=== PATIENT | female | born 1935 | race Caucasian/White ===

== ENCOUNTER 2019-11-16 15:19 | IRF | payer MEDICARE, OTHER, SELFPAY ==
[2019-11-16 15:03] VITALS: BP 113/63; PULSE 109; RESP 16; TEMP 36.3; O2SAT 98; BMI 18.9
--- NOTE | 2019-11-16 15:17 | ADMGEN ---
This patient, Caitie Saez, was admitted to [facility] Room 224-02. Patient/family oriented to hospital policies and general routines including ID bracelet, bed and alarms, visiting hours, pain management, procedures, bathroom and other care routines, personal items, smoking policy, room service/diet, and visiting hours. Valuables list has been completed. Information on how to activate the Rapid Response Team has been discussed. Patient/Family are encouraged to report perceived risks to care and to ask questions if they do not understand what they are told or what they should do.
[2019-11-16 15:58] VITALS: PULSE 109; RESP 16; O2SAT 98
[2019-11-16] MEDS: PANTOPRAZOLE 40 MG TABLET PO (17:42)
[2019-11-16] MEDS: ENOXAPARIN 30 MG/0.3 ML SYRINGE SUB-Q (20:20)
[2019-11-16 22:00] VITALS: BP 113/52; PULSE 92; RESP 18; TEMP 36.7; O2SAT 98
[2019-11-17 04:51] LABS: Basophils Percent Auto 0.7 % (0.2-1.2); Eosinophils Absolute Auto 0.1 K/mm3 (0-0.3); Eosinophils Percent Auto 1.9 % (0-4.4); Hemoglobin 9.2 g/dL (12.0-15.0); Immature Granulocyte Absolute 0.02 K/mm3 (0.00-0.031); Immature Granulocyte Percent A 0.5 % (0-0.5); Lymphocytes Absolute Auto 1.08 K/mm3 (0.9-3.2); Lymphocytes Percent Auto 25.9 % (18.3-44.2); Mean Corpuscular HGB Conc 31.7 g/dl (32-36); Mean Corpuscular Hemoglobin 29.5 pg (26-34); Mean Corpuscular Volume 92.9 fl (80-100); Mean Platelet Volume 8.4 fl (7.4-10.4); Monocytes Absolute Auto 0.5 K/mm3 (0.1-0.6); Monocytes Percent Auto 12.7 % (2.6-8.5); Neutrophils Absolute Auto 2.4 K/mm3 (1.3-6.7); Neutrophils Percent Auto 58.3 % (45.5-73.1); Platelet Count Result 465 k/mm3 (150-375); Red Blood Count 3.12 M/mm3 (4.2-5.4); Red Cell Distribution Width 13.3 % (11.5-14.5); White Blood Count 4.2 K/mm3 (4.5-10.0)
[2019-11-17 05:09] LABS: Blood Urea Nitrogen 14 mg/dL (7-17); Calcium 8.8 mg/dL (8.4-10.2); Carbon Dioxide 27 mmol/L (22-30); Chloride 99 mmol/L (98-107); Estimated CRCL calculation 47 ml/min; Estimated Glomerular Filt Rate > 60; Glucose 109 mg/dL (65-105); Sodium 134 mmol/L (137-145)
[2019-11-17 06:00] VITALS: BP 118/66; PULSE 88; RESP 18; TEMP 36.6; O2SAT 97
[2019-11-17] MEDS: ALENDRONATE SODIUM 70 MG TABLET PO (06:15)
[2019-11-17 08:35] VITALS: BP 102/91; PULSE 103
[2019-11-17] MEDS: TIZANIDINE HCL 4 MG TABLET PO (08:39)
[2019-11-17] MEDS: LOVASTATIN 20 MG TABLET PO (08:39)
[2019-11-17] MEDS: PANTOPRAZOLE 40 MG TABLET PO ×2 (08:40→18:13)
[2019-11-17 14:00] VITALS: BP 119/58; PULSE 99; RESP 18; TEMP 36.6; O2SAT 99
[2019-11-17] MEDS: ENOXAPARIN 30 MG/0.3 ML SYRINGE SUB-Q (20:07)
--- NOTE | 2019-11-17 21:27 | REHAB_ITS ---
DATE OF SERVICE: 11/16/2019 The patient's primary rehab impairment category is neurological condition with etiological diagnosis of lumbar spondylolisthesis and stenosis with neurogenic claudication. The patient was seen [id number] on 11/17/2019 at 10:30 a.m. HISTORY OF PRESENT ILLNESS: An 84-year-old right-handed female, with ongoing history of. 1. Arthritis. 2. Hypertension. 3. GERD. 4. Left total knee arthroplasty in the past. Presented to [facility] on 11/11/2019, for an elective L4-5 posterior lumbar interbody fusion. She underwent laminectomy facetectomy, foraminotomy, and resection of abnormal facet joints at the level of L4-5, L4-5 instrumentation, and L4-5 posterolateral arthrodesis and L4-5 diskectomy and posterior interbody fusion on 11/11/[address] Cathie Mcghee. Postoperatively, she experienced postoperative pain, became anemic from acute blood loss, developed impaired mobility and impaired ability to perform activities of daily living independently. She was to wear and off the self [place] brace when out of bed and ambulating. She was to able to remove it while in bed for hygiene purposes. She was on spinal precautions with no other restriction, hemodynamically stable with current hemoglobin of 9.1. Pain was controlled with oral pain medication, and she was discharged to rehab on Lovenox for DVT prophylaxis, but the therapy was initiated at the acute care facility and the patient was transferred to us from [facility] on 11/16/2019. SURGERY OR FALL: The patient has had major surgery in the 100 days prior to admission. She had no falls with injury in the past year. PAST MEDICAL HISTORY: Arthritis, dyspnea on exertion, GERD, hypertension, hyperlipidemia, back injury, and osteoporosis. PAST SURGICAL HISTORY: Hysterectomy, left total knee arthroplasty, tonsillectomy. SOCIAL HISTORY: Former smoker. Occasional alcohol use. PRIOR LEVEL OF FUNCTION: The patient was independent in eating, oral care, toileting hygiene, bathing, shower, upper body, lower body, footwear, rolling left and right, sit to lying, lying to sitting, sit to stand, bed to chair transfer, toilet transfer, walking independently for 750 feet with rolling walker, wheelchair obviously was not applicable, but she was independent for the stairs as well. CURRENT LEVEL OF FUNCTION: Independent in eating, requires partial assistance for oral care, substantial assistance for toileting hygiene, bathing and shower, partial assistance for upper body, substantial assistance for lower body and footwear, partial assistance for the rolling left and right, substantial assistance for sit to lying, lying to sitting, sit to stand, chair transfer, substantial assistance [id number] and toilet transfer, walking 6 feet with rolling walker substantial assistance, wheelchair not tested, stairs not tested. GOALS: Our therapist will evaluate the patient and establish the goals. However, upon preadmission screening, the expected goals were to be independent with self-care, with transfers with functional mobility so the patient can return home. ESTIMATED LENGTH OF STAY: 10 to 14 days. POTENTIAL BARRIER TO DISCHARGE: Family needs training. ACTIVE COMORBID CONDITION PRESENT ON ADMISSION: Hypertension, hyperlipidemia, GERD, dyspnea on exertion, arthritis, acute postoperative pain, and postoperative blood loss resulting in anemia. PHYSICAL EXAMINATION: GENERAL: Revealed her to be awake, alert, cooperative. VITAL SIGNS: Blood pressure 102/91, pulse of 103, respiration 18, BMI of 19.0 with weight of 50.1 kg. HEENT: Head normocephalic with no cranial bruit. Ear, nose, throat examination normal. NECK: Supple with no cervical bruit. No thyromegaly. No lymphadenopathy.
[2019-11-17 22:00] VITALS: BP 143/64; PULSE 104; RESP 18; TEMP 37.4; O2SAT 96
[2019-11-18] MEDS: TIZANIDINE HCL 4 MG TABLET PO ×3 (04:02→20:16)
[2019-11-18 06:00] VITALS: BP 134/64; PULSE 78; RESP 18; TEMP 36.9; O2SAT 96
[2019-11-18] MEDS: lisinopriL 10 MG TABLET PO (08:45)
[2019-11-18] MEDS: LOVASTATIN 20 MG TABLET PO (08:46)
[2019-11-18] MEDS: PANTOPRAZOLE 40 MG TABLET PO ×2 (08:46→16:47)
[2019-11-18 10:48] VITALS: BMI 18.9
--- NOTE | 2019-11-18 11:10 | PCNSR ---
On 11/18/19, the student, Steph Bales, provided care and completed [facility] documentation on this patient. I have reviewed the student's documentation and agree with the findings.
--- NOTE | 2019-11-18 12:02 | RPD ---
INDIVIDUALIZED PLAN OF CARE FOR Caitie Saez Brief Synthesis of Pre-Admission Screen, Post-Admission Evaluation and Therapy Evaluations: The patient presents to rehab with lumbar spondylolisthesis and stenosis with neurogenic claudication. Comorbidities include hypertension, hyperlipidemia, gastroesophageal reflux disease, dyspnea on exertion, arthritis, acute postoperative pain, and acute blood loss anemia. The patient requires physician services for medical oversight, management of post-op complications in setting of present comorbidities, and pain management. The patient requires nursing services for anticoagulation therapy, diabetes training, DVT prophylactics, IV administration, infection protection, medication management and education, pressure relief, and wound care. Deficits include:ADLs, Balance, Endurance, Family Training/Education, Mobility, Pain Management, ROM, Safety, Strength, and Transfers Manager Nuclear/Case Management for: Discharge Planning and Patient/Family Counseling Physical Therapy: 5 days per week for 90 minutes. Treatments may include: Therapeutic Exercise, Gait Training, Neuromuscular Re-education, Transfer Training, Community Reintegration, Bed Mobility, Patient/Family Education, Wheelchair Mobility Group Therapy/Concurrent Therapy Rationales: -Improve attention span during functional activities in a distracted environment. -Enhance problem solving and/or adequate judgment skills during functional activities in a distracted environment. -Promote increased safety awareness in a distracted environment to reduce fall risk with functional tasks, transfers, and ambulation to allow a more safe, self-sufficient return to the home environment. -Improve dynamic balance skills to promote safety and independence with functional activities in a distracted environment for maximum gain. Occupational Therapy: 5 days per week for 90 minutes. Treatments may include: Therapeutic Exercise, Therapeutic Activity, Cognitive Training, Self-Care Transfer Training, Community Reintegration, Home Management, Patient/Family Education, Wheelchair Mobility Training, Energy Conservation Training Group Therapy/Concurrent Therapy Rationales: -Allow therapist to observe and teach generalization and carry-over of skills learned in individual therapy. -Enhance problem solving and sequencing skills during therapeutic activities in a distracted environment. -Promote increased safety awareness in a realistic setting to reduce fall risk with functional tasks due to visual and verbal distractions. -Increase functional level with ADLs, ADL transfers and use of adaptive equipment through therapeutic activities with others while promoting safety to allow a more safe, self-sufficient return home. Medical Prognosis: Good Anticipated Length of Stay: 10-14 days Rehab Goals: Eating Goal: 06-Independent Oral Hygiene Goal: 06-Independent Toileting Hygiene Goal: 03-Partial/Moderate Assistance Shower/Bathe Self Goal: 03-Partial/Moderate Assistance Upper Body Dressing Goal: 04-Supervision or Touching Assistance Lower Body Dressing Goal: 03-Partial/Moderate Assistance Putting On/Taking Off Footwear Goal: 03-Partial/Moderate Assistance Rolling Left and Right Goal: 06-Independent Sit to Lying Goal: 05-Setup or Clean Up Assistance Lying to Sitting on Side of Bed Goal: 05-Setup or Clean Up Assistance Sit to Stand Goal: 05-Setup or Clean Up Assistance Chair/[id number] Transfer Goal: 05-Setup or Clean Up Assistance Toilet Transfer Goal: 04-Supervision or Touching Assistance Car Transfer Goal: 05-Setup or Clean Up Assistance Walk 10' Goal: 05-Setup or Clean Up Assistance Walk 50' with Two Turns Goal: 05-Setup or Clean Up Assistance Walk 150' Goal: 05-Setup or Clean Up Assistance Walk 10' on Uneven Surface Goal: 05-Setup or Clean Up Assistance 1 Step (Curb) Goal: 03-Partial/Moderate Assistance 4 Steps Goal: 03-Partial/Moderate Assistance 12 Steps Goal Score: 03-Partial/Moderate A
[2019-11-18 14:00] VITALS: BP 119/56; PULSE 96; RESP 19; TEMP 36.2; O2SAT 99
[2019-11-18] MEDS: ENOXAPARIN 30 MG/0.3 ML SYRINGE SUB-Q (20:16)
[2019-11-18 22:00] VITALS: BP 124/55; PULSE 97; RESP 18; TEMP 36.3; O2SAT 98
[2019-11-19 06:00] VITALS: BP 131/58; PULSE 86; RESP 18; TEMP 36.6; O2SAT 99
[2019-11-19] MEDS: LOVASTATIN 20 MG TABLET PO (09:38)
[2019-11-19] MEDS: PANTOPRAZOLE 40 MG TABLET PO ×2 (09:38→17:46)
[2019-11-19] MEDS: lisinopriL 10 MG TABLET PO (09:38)
[2019-11-19] MEDS: TIZANIDINE HCL 4 MG TABLET PO (10:57)
--- NOTE | 2019-11-19 13:19 | WPDNEURORHBP ---
Subjective Date/time seen: 11/19/19 13:19 Interval history: patient is here for lumbar stenosis present physically for the team conference she does have weakness of lower extremities more so than the upper extremities without any headache nausea vomiting chest pain shortness of breath she remains afebrile medications were reviewed Review of Systems Review of Systems: All systems reviewed & are unremarkable except as noted in HPI and below Exam Const: General: comfortable and no acute distress HENMT: Other: normal exam Eyes: General: appearance normal, both eyes and all related structures Neck: Neck: supple and no JVD Resp: Effort & Inspection: normal respiratory effort Auscultation: clear to auscultation bilaterally Cardio: Rate: regular rate Rhythm: regular rhythm GI: GI Palp: Yes Soft to palpation Auscultation: normal bowel sounds Skin: General skin exam: normal color and no rashes or lesions noted Neuro: Other: patient's mental status is normal, cranial nerve examination is normal. She has generalized weakness of both upper lower extra upper and lower extremities lower extremities more so than the upper extremities needing assistance in all the activities of daily living and using assistive device Extrem: General: normal to inspection Objective Data Vital Signs Vital Signs: Vital Signs - 24 hr 11/18/19 14:00 11/18/19 22:00 11/19/19 06:00 Temperature 36.2 C L 36.3 C L 36.6 C Pulse Rate 96 97 86 Respiratory Rate 19 18 18 Blood Pressure 119/56 L 124/55 L 131/58 L Pulse Oximetry 99 98 99 Intake/Output Intake/Output: Intake & Output 11/16/19 11/17/19 11/18/19 11/19/19 23:59 23:59 23:59 23:59 Intake Total 200 720 840 Balance 200 720 840 Meds/Results Medications: Active Medications Generic Name Dose Route Start Last Admin Trade Name Freq PRN Reason Stop Dose Admin Hydrocodone Bitart/Acetaminophen 1 tab 11/16/19 15:27 11/17/19 12:45 [place] 5-325 Mg PO 1 tab Q4H PRN Administration Pain (Scale Score 4-6) Hydrocodone Bitart/Acetaminophen 2 tab 11/16/19 15:27 11/19/19 10:56 [place] 5-325 Mg PO 2 tab Q4H PRN Administration Pain (Scale Score 7-10) Alendronate Sodium 70 mg 11/17/19 06:30 11/17/19 06:15 Fosamax PO 70 mg Four[place]@0630 RYAN Administration Enoxaparin Sodium 30 mg 11/16/19 21:00 11/18/19 20:16 Lovenox SUB-Q 30 mg HS RYAN Administration Lisinopril 10 mg 11/17/19 09:00 11/19/19 09:38 Prinivil PO 10 mg DAILY RYAN Administration Lovastatin 20 mg 11/17/19 09:00 11/19/19 09:38 Lovastatin PO 20 mg DAILY RYAN Administration Pantoprazole Sodium 40 mg 11/16/19 17:00 11/19/19 09:38 Protonix PO 40 mg BID RYAN Administration Tizanidine HCl 4 mg 11/16/19 15:27 11/19/19 10:57 Zanaflex PO 4 mg Q6H PRN Administration Muscle Spasm Progress Note: A&P Assessment and Plan (1) Spondylolisthesis, lumbar region: Code(s): M43.16 - Spondylolisthesis, lumbar region Status: Acute (2) Neurogenic claudication: Code(s): M48.062 - Spinal stenosis, lumbar region with neurogenic claudication Status: Acute (3) Fusion of lumbar spine: Code(s): M43.26 - Fusion of spine, lumbar region Status: Acute (4) S/P laminectomy: Code(s): Z98.890 - Other specified postprocedural states Status: Acute (5) Hypertension: Code(s): I10 - Essential (primary) hypertension Status: Acute (6) GERD (gastroesophageal reflux disease): Code(s): K21.9 - Gastro-esophageal reflux disease without esophagitis Status: Acute Additional Plan discussed in the team conference in detail questions were answered son was on telephone line and significant other was present. We will continue present management and reassess the situation next week discharged tentative planning is for December 01, 2019
[2019-11-19 14:00] VITALS: BP 79/53; PULSE 94; RESP 18; TEMP 36.5; O2SAT 97
[2019-11-19] MEDS: ENOXAPARIN 30 MG/0.3 ML SYRINGE SUB-Q (19:59)
[2019-11-19 22:00] VITALS: BP 123/54; PULSE 87; RESP 18; TEMP 36.8; O2SAT 97
[2019-11-20 06:00] VITALS: BP 116/51; PULSE 79; RESP 17; TEMP 36.7; O2SAT 96
[2019-11-20] MEDS: LOVASTATIN 20 MG TABLET PO (08:33)
[2019-11-20] MEDS: lisinopriL 10 MG TABLET PO (08:33)
[2019-11-20] MEDS: PANTOPRAZOLE 40 MG TABLET PO ×2 (08:33→17:38)
--- NOTE | 2019-11-20 13:59 | WPDNEURORHBP ---
Subjective Date/time seen: 11/20/19 13:59 Interval history: patient is complaining of significant amount of pain and we will adjust the medication accordingly according to the significant other the surgeon has called him to have a follow-up for the staple removal however they also gave him the option that the baljeet can be removed here her incision is clean and healthy and baljeet are also clean and healthy so we should be able to take care of it at our end Review of Systems Review of Systems: All systems reviewed & are unremarkable except as noted in HPI and below Functional Status Ambulation Ability Ambulation Assistive Devices: Walker, Wheeled Exam Const: General: comfortable and no acute distress HENMT: General nose exam: Normal nares present Mouth: Yes moist mucous membranes Eyes: General: appearance normal, both eyes and all related structures Neck: Neck: supple and no JVD Resp: Effort & Inspection: normal respiratory effort Auscultation: clear to auscultation bilaterally Cardio: Rate: regular rate Rhythm: regular rhythm GI: GI Palp: Yes Soft to palpation Auscultation: normal bowel sounds Skin: General skin exam: normal color and no rashes or lesions noted Neuro: Other: improving generalized weakness particularly the lower extremity weakness the patient is engage in the therapy quite well we will change the medication to scheduled oxycodone Extrem: General: normal to inspection Objective Data Vital Signs Vital Signs: Vital Signs - 24 hr 11/19/19 14:00 11/19/19 22:00 11/20/19 06:00 Temperature 36.5 C 36.8 C 36.7 C Pulse Rate 94 87 79 Respiratory Rate 18 18 17 Blood Pressure 79/53 L 123/54 L 116/51 L Pulse Oximetry 97 97 96 Intake/Output Intake/Output: Intake & Output 11/17/19 11/18/19 11/19/19 11/20/19 23:59 23:59 23:59 23:59 Intake Total 720 840 360 Balance 720 840 360 Meds/Results Medications: Active Medications Generic Name Dose Route Start Last Admin Trade Name Freq PRN Reason Stop Dose Admin Hydrocodone Bitart/Acetaminophen 1 tab 11/16/19 15:27 11/17/19 12:45 [place] 5-325 Mg PO 1 tab Q4H PRN Administration Pain (Scale Score 4-6) Hydrocodone Bitart/Acetaminophen 2 tab 11/16/19 15:27 11/20/19 11:45 [place] 5-325 Mg PO 2 tab Q4H PRN Administration Pain (Scale Score 7-10) Alendronate Sodium 70 mg 11/17/19 06:30 11/17/19 06:15 Fosamax PO 70 mg Fournier@0630 RYAN Administration Enoxaparin Sodium 30 mg 11/16/19 21:00 11/19/19 19:59 Lovenox SUB-Q 30 mg HS RYAN Administration Lisinopril 10 mg 11/17/19 09:00 11/20/19 08:33 Prinivil PO 10 mg DAILY RYAN Administration Lovastatin 20 mg 11/17/19 09:00 11/20/19 08:33 Lovastatin PO 20 mg DAILY RYAN Administration Pantoprazole Sodium 40 mg 11/16/19 17:00 11/20/19 08:33 Protonix PO 40 mg BID RYAN Administration Tizanidine HCl 4 mg 11/16/19 15:27 11/19/19 10:57 Zanaflex PO 4 mg Q6H PRN Administration Muscle Spasm Progress Note: A&P Assessment and Plan (1) GERD (gastroesophageal reflux disease): Code(s): K21.9 - Gastro-esophageal reflux disease without esophagitis Status: Acute (2) Hypertension: Code(s): I10 - Essential (primary) hypertension Status: Acute (3) S/P laminectomy: Code(s): Z98.890 - Other specified postprocedural states Status: Acute (4) Fusion of lumbar spine: Code(s): M43.26 - Fusion of spine, lumbar region Status: Acute (5) Neurogenic claudication: Code(s): M48.062 - Spinal stenosis, lumbar region with neurogenic claudication Status: Acute (6) Spondylolisthesis, lumbar region: Code(s): M43.16 - Spondylolisthesis, lumbar region Status: Acute Additional Plan pain management medical management reassurance counseling physical therapy occupational therapy and gait training
[2019-11-20 14:00] VITALS: BP 109/53; PULSE 100; RESP 17; TEMP 36.7; O2SAT 99
[2019-11-20] MEDS: ENOXAPARIN 30 MG/0.3 ML SYRINGE SUB-Q (20:33)
[2019-11-20] MEDS: TIZANIDINE HCL 4 MG TABLET PO (21:28)
[2019-11-20 22:00] VITALS: BP 121/61; PULSE 109; RESP 18; TEMP 36.5; O2SAT 98
[2019-11-21] MEDS: TIZANIDINE HCL 4 MG TABLET PO ×3 (04:23→20:43)
[2019-11-21 05:58] VITALS: BP 94/40; PULSE 68; RESP 18; TEMP 36.7; O2SAT 97
[2019-11-21] MEDS: lisinopriL 10 MG TABLET PO (07:57)
[2019-11-21] MEDS: PANTOPRAZOLE 40 MG TABLET PO ×2 (07:58→18:03)
[2019-11-21] MEDS: LOVASTATIN 20 MG TABLET PO (07:58)
[2019-11-21 08:00] VITALS: PULSE 68; RESP 18; O2SAT 97
--- NOTE | 2019-11-21 12:20 | WPDNEURORHBP ---
Subjective Date/time seen: 11/21/19 12:20 Interval history: patient is here for lumbar canal stenosis post surgery and recuperating fairly well her incision is clean and healthy baljeet will be removed tomorrow as per instructions from the surgeon with whom she has the follow-up for staple removal but according to them we can remove them here Patient denies any new neurological findings had weakness is improving no headache chest pain shortness of breath fever chills or sore throat Review of Systems Review of Systems: All systems reviewed & are unremarkable except as noted in HPI and below Functional Status Ambulation Ability Ability to Ambulate 10 Feet: Maximum Assistance X 1 Ambulation Assistive Devices: Walker, Wheeled Transfers Ability Ability to Transfer In/Out of Chair: Moderate Assistance X 1 Exam Const: General: comfortable and no acute distress HENMT: General nose exam: Normal nares present Mouth: Yes moist mucous membranes Eyes: General: appearance normal, both eyes and all related structures Neck: Neck: supple and no JVD Resp: Effort & Inspection: normal respiratory effort Auscultation: clear to auscultation bilaterally Cardio: Rate: regular rate Rhythm: regular rhythm GI: GI Palp: Yes Soft to palpation Auscultation: normal bowel sounds Back/Spine/Pelvis: Other: patient's incision and the thoracolumbar area is clean and healthy baljeet are in place no drainage is noted no sign of infection Skin: General skin exam: normal color and no rashes or lesions noted Neuro: Other: the strength particularly in the lower extremities is improving the reflexes remain the same as before no new neurological finding likewise the strength in the upper extremities is also improving Extrem: General: normal to inspection Objective Data Vital Signs Vital Signs: Vital Signs - 24 hr 11/20/19 14:00 11/20/19 22:00 11/21/19 05:58 Temperature 36.7 C 36.5 C 36.7 C Pulse Rate 100 109 H 68 Respiratory Rate 17 18 18 Blood Pressure 109/53 L 121/61 94/40 L Pulse Oximetry 99 98 97 11/21/19 08:00 Temperature Pulse Rate 68 Respiratory Rate 18 Blood Pressure Pulse Oximetry 97 Intake/Output Intake/Output: Intake & Output 11/18/19 11/19/19 11/20/19 11/21/19 23:59 23:59 23:59 23:59 Intake Total 840 600 340 Balance 840 600 340 Meds/Results Medications: Active Medications Generic Name Dose Route Start Last Admin Trade Name Freq PRN Reason Stop Dose Admin Hydrocodone Bitart/Acetaminophen 1 tab 11/16/19 15:27 11/21/19 01:02 [place] 5-325 Mg PO 1 tab Q4H PRN Administration Pain (Scale Score 4-6) Hydrocodone Bitart/Acetaminophen 2 tab 11/16/19 15:27 11/21/19 12:03 [place] 5-325 Mg PO 2 tab Q4H PRN Administration Pain (Scale Score 7-10) Alendronate Sodium 70 mg 11/17/19 06:30 11/17/19 06:15 Fosamax PO 70 mg Fournier@0630 RYAN Administration Enoxaparin Sodium 30 mg 11/16/19 21:00 11/20/19 20:33 Lovenox SUB-Q 30 mg HS RYAN Administration Lisinopril 10 mg 11/17/19 09:00 11/21/19 07:57 Prinivil PO 10 mg DAILY RYAN Administration Lovastatin 20 mg 11/17/19 09:00 11/21/19 07:58 Lovastatin PO 20 mg DAILY RYAN Administration Pantoprazole Sodium 40 mg 11/16/19 17:00 11/21/19 07:58 Protonix PO 40 mg BID RYAN Administration Tizanidine HCl 4 mg 11/16/19 15:27 11/21/19 04:23 Zanaflex PO 4 mg Q6H PRN Administration Muscle Spasm Progress Note: A&P Assessment and Plan (1) GERD (gastroesophageal reflux disease): Code(s): K21.9 - Gastro-esophageal reflux disease without esophagitis Status: Acute (2) Hypertension: Code(s): I10 - Essential (primary) hypertension Status: Acute (3) S/P laminectomy: Code(s): Z98.890 - Other specified postprocedural states Status: Acute (4) Fusion of lumbar spine: Code(s): M43.26 - Fusion of spine, lumbar region Status: Acute (5) Neurog
[2019-11-21 14:00] VITALS: BP 119/52; PULSE 107; RESP 20; TEMP 36.3; O2SAT 97
[2019-11-21] MEDS: ENOXAPARIN 30 MG/0.3 ML SYRINGE SUB-Q (20:41)
[2019-11-21 22:00] VITALS: BP 132/52; PULSE 88; RESP 18; TEMP 37.2; O2SAT 98
[2019-11-22] MEDS: TIZANIDINE HCL 4 MG TABLET PO ×2 (04:04→20:25)
[2019-11-22 06:00] VITALS: BP 141/58; PULSE 78; RESP 18; TEMP 36.6; O2SAT 100
[2019-11-22 08:00] VITALS: PULSE 78; RESP 18; O2SAT 100
[2019-11-22] MEDS: PANTOPRAZOLE 40 MG TABLET PO ×2 (09:10→16:34)
[2019-11-22] MEDS: LOVASTATIN 20 MG TABLET PO (09:10)
[2019-11-22] MEDS: lisinopriL 10 MG TABLET PO (09:10)
--- NOTE | 2019-11-22 13:36 | WPDNEURORHBP ---
Subjective Date/time seen: 11/22/19 13:36 Interval history: pain and discomfort her remains the main issue along with the anxiety and superimposed frustration otherwise she is overall stable the baljeet are supposed to be removed today as per recommendation from the surgical team which she has had the surgery performed patient denies any headache chest pain or shortness of breath no nausea vomiting or fever or chills Review of Systems Review of Systems: All systems reviewed & are unremarkable except as noted in HPI and below Functional Status Ambulation Ability Ability to Ambulate 10 Feet: Moderate Assistance X 2 Ability to Ambulate 50 Feet With 2 Turns: Moderate Assistance X 2 Ambulation Assistive Devices: Walker, Rollator Transfers Ability Ability to Transfer In/Out of Chair: Moderate Assistance X 1 Exam Const: General: no acute distress and uncomfortable Other: patient is uncomfortable due to continuum of the pain particularly increases with physical therapy HENMT: General nose exam: Normal nares present Mouth: Yes moist mucous membranes Eyes: General: appearance normal, both eyes and all related structures Neck: Neck: supple and no JVD Resp: Effort & Inspection: normal respiratory effort Auscultation: clear to auscultation bilaterally Cardio: Rate: regular rate Rhythm: regular rhythm GI: GI Palp: Yes Soft to palpation Auscultation: normal bowel sounds Skin: General skin exam: normal color and no rashes or lesions noted Neuro: Other: patient's weakness particularly the lower extremities more so than the upper extremities is slowly improving she is taking several steps with the assistance however needs significant encouragement and counseling to reduce her anxiety and depressive state Extrem: General: normal to inspection Objective Data Vital Signs Vital Signs: Vital Signs - 24 hr 11/21/19 14:00 11/21/19 22:00 11/22/19 06:00 Temperature 36.3 C L 37.2 C 36.6 C Pulse Rate 107 H 88 78 Respiratory Rate 20 18 18 Blood Pressure 119/52 L 132/52 L 141/58 H Pulse Oximetry 97 98 100 11/22/19 08:00 Temperature Pulse Rate 78 Respiratory Rate 18 Blood Pressure Pulse Oximetry 100 Intake/Output Intake/Output: Intake & Output 11/19/19 11/20/19 11/21/19 11/22/19 23:59 23:59 23:59 23:59 Intake Total 600 920 340 Balance 600 920 340 Meds/Results Medications: Active Medications Generic Name Dose Route Start Last Admin Trade Name Freq PRN Reason Stop Dose Admin Hydrocodone Bitart/Acetaminophen 1 tab 11/16/19 15:27 11/21/19 01:02 [place] 5-325 Mg PO 1 tab Q4H PRN Administration Pain (Scale Score 4-6) Hydrocodone Bitart/Acetaminophen 2 tab 11/16/19 15:27 11/22/19 09:13 [place] 5-325 Mg PO 2 tab Q4H PRN Administration Pain (Scale Score 7-10) Alendronate Sodium 70 mg 11/17/19 06:30 11/17/19 06:15 Fosamax PO 70 mg Fournier@0630 RYAN Administration Enoxaparin Sodium 30 mg 11/16/19 21:00 11/21/19 20:41 Lovenox SUB-Q 30 mg HS RYAN Administration Lisinopril 10 mg 11/17/19 09:00 11/22/19 09:10 Prinivil PO 10 mg DAILY RYAN Administration Lovastatin 20 mg 11/17/19 09:00 11/22/19 09:10 Lovastatin PO 20 mg DAILY RYAN Administration Pantoprazole Sodium 40 mg 11/16/19 17:00 11/22/19 09:10 Protonix PO 40 mg BID RYAN Administration Tizanidine HCl 4 mg 11/16/19 15:27 11/22/19 04:04 Zanaflex PO 4 mg Q6H PRN Administration Muscle Spasm
[2019-11-22 14:00] VITALS: BP 109/69; PULSE 111; RESP 20; TEMP 36.4; O2SAT 100
--- NOTE | 2019-11-22 14:26 | PCDIET ---
Nutrition Follow-Up Complete: Nutrition Diagnosis: Inadequate energy intake related to decreased appetite as evidenced by unintentional weight loss of 7.2 kg since March and reported intake. Nutrition Goals: Patient will consume >70% of all meals and all dietary supplements. Goal met. Average intake since 11/19/19 has been 75% of meals. Patient reports taking all Ensure Compact supplements and is drinking one during visit. Last recorded weight is 50.1 kg. Recommend obtaining new weight. Bowel Motility: Last documented bowel movement on 11/21/19. Patient feels her bowel schedule is back to normal. Labs Reviewed: No new labs available. Meds Noted: Fosamax, Protonix Additional Notes: Back incision with baljeet; no documented pressure ulcers. Will continue to monitor with same goals. Nutrition Monitoring and Evaluation: Will follow up in 7 days.
[2019-11-22] MEDS: ENOXAPARIN 30 MG/0.3 ML SYRINGE SUB-Q (20:26)
[2019-11-22 22:00] VITALS: BP 132/49; PULSE 96; RESP 18; TEMP 37.1; O2SAT 98
[2019-11-23] MEDS: TIZANIDINE HCL 4 MG TABLET PO ×2 (03:44→16:16)
[2019-11-23 06:00] VITALS: BP 82/43; PULSE 80; RESP 19; TEMP 37; O2SAT 96
[2019-11-23] MEDS: LOVASTATIN 20 MG TABLET PO (09:11)
[2019-11-23] MEDS: PANTOPRAZOLE 40 MG TABLET PO ×2 (09:11→17:41)
[2019-11-23] MEDS: lisinopriL 10 MG TABLET PO (09:11)
[2019-11-23 14:00] VITALS: BP 110/71; PULSE 85; RESP 16; TEMP 36.5; O2SAT 96
[2019-11-23] MEDS: ENOXAPARIN 30 MG/0.3 ML SYRINGE SUB-Q (19:51)
[2019-11-23 22:00] VITALS: BP 108/50; PULSE 98; RESP 18; TEMP 36.9; O2SAT 98
[2019-11-24] MEDS: TIZANIDINE HCL 4 MG TABLET PO (01:06)
[2019-11-24 05:16] LABS: Blood Urea Nitrogen 17 mg/dL (7-17); Carbon Dioxide 31 mmol/L (22-30); Chloride 99 mmol/L (98-107); Estimated CRCL calculation 41 ml/min; Estimated Glomerular Filt Rate > 60; Glucose 101 mg/dL (65-105); Potassium 4.5 mmol/L (3.4-5.0); Sodium 136 mmol/L (137-145)
[2019-11-24 05:34] LABS: Basophils Percent Auto 0.6 % (0.2-1.2); Eosinophils Absolute Auto 0.1 K/mm3 (0-0.3); Eosinophils Percent Auto 1.8 % (0-4.4); Hematocrit 26.1 % (37.0-47.0); Hemoglobin 7.9 g/dL (12.0-15.0); Immature Granulocyte Absolute 0.05 K/mm3 (0.00-0.031); Immature Granulocyte Percent A 0.7 % (0-0.5); Lymphocytes Absolute Auto 1.16 K/mm3 (0.9-3.2); Mean Corpuscular HGB Conc 30.3 g/dl (32-36); Mean Platelet Volume 8.5 fl (7.4-10.4); Monocytes Absolute Auto 0.5 K/mm3 (0.1-0.6); Monocytes Percent Auto 7.5 % (2.6-8.5); Neutrophils Percent Auto 72.4 % (45.5-73.1); Platelet Count Result 558 k/mm3 (150-375); Red Blood Count 2.72 M/mm3 (4.2-5.4); White Blood Count 6.8 K/mm3 (4.5-10.0)
[2019-11-24 06:00] VITALS: BP 120/55; PULSE 80; RESP 18; TEMP 36.8; O2SAT 94
[2019-11-24] MEDS: ALENDRONATE SODIUM 70 MG TABLET PO (06:03)
[2019-11-24] MEDS: PANTOPRAZOLE 40 MG TABLET PO ×2 (08:04→18:00)
[2019-11-24] MEDS: lisinopriL 10 MG TABLET PO (08:04)
[2019-11-24] MEDS: LOVASTATIN 20 MG TABLET PO (08:04)
[2019-11-24 14:00] VITALS: BP 101/61; PULSE 98; RESP 16; TEMP 36.8; O2SAT 99
--- NOTE | 2019-11-24 14:23 | WPDNEURORHBP ---
Subjective Date/time seen: 11/24/19 14:23 Interval history: patient's significant other tell me that she is depressed and at times seems like giving up this is probably combination of pain and discomfort and also being in the hospital The laboratory data daughter shows anemia which I am going to observe and repeat the CBC tomorrow Review of Systems Constitutional: Constitutional: Reports no additional constitutional complaints Eyes: Eyes: Reports no additional eye complaints ENT: Reports system reviewed and no additional complaints, except as documented Cardiovascular: Cardiovascular: Reports no additional cardiovascular complaints Respiratory: Respiratory: Reports no additional respiratory complaints Gastrointestinal: Gastrointestinal: Reports no additional gastrointestinal complaints Genitourinary: Genitourinary: Reports no additional female genitourinary complaints Musculoskeletal: Comments: patient has discomfort and the pain at the surgical site and in fact did not cooperate with the therapy today due to pain Integumentary/Breasts: Skin/Breast: Reports system reviewed and no additional complaints, except as docu Neurologic: Comments: seems to be perturbed due to pain rather than the real weakness Psychiatric: Comments: patient's significant other stools me that she is depressed Functional Status Ambulation Ability Ability to Ambulate 10 Feet: Moderate Assistance X 1 Ability to Ambulate 50 Feet With 2 Turns: Moderate Assistance X 2 Ambulation Assistive Devices: Walker, Rollator Transfers Ability Ability to Transfer In/Out of Chair: Moderate Assistance X 1 Exam Const: General: no acute distress and uncomfortable HENMT: General nose exam: Normal nares present Mouth: Yes moist mucous membranes Eyes: General: appearance normal, both eyes and all related structures Neck: Neck: supple and no JVD Resp: Effort & Inspection: normal respiratory effort Auscultation: clear to auscultation bilaterally Cardio: Rate: regular rate Rhythm: regular rhythm GI: GI Palp: Yes Soft to palpation Auscultation: normal bowel sounds Skin: General skin exam: normal color and no rashes or lesions noted Neuro: Other: patient's needing assistance because of the pain rather than the real weakness although she does have weakness and debility in the lower extremities more so than the upper extremities related to the surgery Extrem: General: normal to inspection Objective Data Vital Signs Vital Signs: Vital Signs - 24 hr 11/23/19 22:00 11/24/19 06:00 Temperature 36.9 C 36.8 C Pulse Rate 98 80 Respiratory Rate 18 18 Blood Pressure 108/50 L 120/55 L Pulse Oximetry 98 94 Intake/Output Intake/Output: Intake & Output 11/21/19 11/22/19 11/23/19 11/24/19 23:59 23:59 23:59 23:59 Intake Total 920 1020 520 720 Balance 920 1020 520 720 Meds/Results Medications: Active Medications Generic Name Dose Route Start Last Admin Trade Name Freq PRN Reason Stop Dose Admin Hydrocodone Bitart/Acetaminophen 1 tab 11/16/19 15:27 11/21/19 01:02 [place] 5-325 Mg PO 1 tab Q4H PRN Administration Pain (Scale Score 4-6) Hydrocodone Bitart/Acetaminophen 2 tab 11/16/19 15:27 11/24/19 08:04 [place] 5-325 Mg PO 2 tab Q4H PRN Administration Pain (Scale Score 7-10) Alendronate Sodium 70 mg 11/17/19 06:30 11/24/19 06:03 Fosamax PO 70 mg Fournier@0630 RYAN Administration Enoxaparin Sodium 30 mg 11/16/19 21:00 11/23/19 19:51 Lovenox SUB-Q 30 mg HS RYAN Administration Lisinopril 10 mg 11/17/19 09:00 11/24/19 08:04 Prinivil PO 10 mg DAILY RYAN Administration Lovastatin 20 mg 11/17/19 09:00 11/24/19 08:04 Lovastatin PO 20 mg DAILY RYAN Administration Pantoprazole Sodium 40 mg 11/16/19 17:00 11/24/19 08:04 Protonix PO 40 mg BID RYAN Administration Tizanidine HCl 4 mg 11/16/19 15:27 11/24/19 01:06 Zanaflex PO 4 mg Q6H PRN Administration Muscle Spas
[2019-11-24] MEDS: ESCITALOPRAM OXALATE 5 MG TABLET PO (15:21)
[2019-11-24] MEDS: ENOXAPARIN 30 MG/0.3 ML SYRINGE SUB-Q (20:18)
[2019-11-24 22:00] VITALS: BP 145/86; PULSE 95; RESP 18; TEMP 36.9; O2SAT 98
[2019-11-24 22:19] VITALS: PULSE 98; RESP 16; O2SAT 99
[2019-11-25 05:11] LABS: Basophils Percent Auto 0.4 % (0.2-1.2); Eosinophils Absolute Auto 0.1 K/mm3 (0-0.3); Eosinophils Percent Auto 0.9 % (0-4.4); Hematocrit 27.2 % (37.0-47.0); Hemoglobin 8.5 g/dL (12.0-15.0); Immature Granulocyte Absolute 0.04 K/mm3 (0.00-0.031); Immature Granulocyte Percent A 0.6 % (0-0.5); Lymphocytes Absolute Auto 1.02 K/mm3 (0.9-3.2); Lymphocytes Percent Auto 15.1 % (18.3-44.2); Mean Corpuscular HGB Conc 31.3 g/dl (32-36); Mean Corpuscular Hemoglobin 29.3 pg (26-34); Mean Corpuscular Volume 93.8 fl (80-100); Monocytes Absolute Auto 0.6 K/mm3 (0.1-0.6); Monocytes Percent Auto 8.3 % (2.6-8.5); Neutrophils Percent Auto 74.7 % (45.5-73.1); Platelet Count Result 587 k/mm3 (150-375); Red Cell Distribution Width 13.9 % (11.5-14.5); White Blood Count 6.8 K/mm3 (4.5-10.0)
[2019-11-25 06:00] VITALS: BP 123/41; PULSE 89; RESP 17; TEMP 37.1; O2SAT 97
[2019-11-25 08:00] VITALS: PULSE 89; RESP 17; O2SAT 97
[2019-11-25] MEDS: ESCITALOPRAM OXALATE 5 MG TABLET PO (10:09)
[2019-11-25] MEDS: PANTOPRAZOLE 40 MG TABLET PO ×2 (10:09→17:43)
[2019-11-25] MEDS: lisinopriL 10 MG TABLET PO (10:09)
[2019-11-25] MEDS: LOVASTATIN 20 MG TABLET PO (10:09)
[2019-11-25 14:38] VITALS: BP 120/43; PULSE 90; RESP 18; TEMP 36.9; O2SAT 96
[2019-11-25] MEDS: ENOXAPARIN 30 MG/0.3 ML SYRINGE SUB-Q (21:14)
[2019-11-25 22:00] VITALS: BP 135/93; PULSE 95; RESP 24; TEMP 36.2; O2SAT 97
[2019-11-25] MEDS: TIZANIDINE HCL 4 MG TABLET PO (22:59)
[2019-11-26] MEDS: polyethylene glycoL 3350 17 GM POWD.PACK PO (05:13)
[2019-11-26 06:00] VITALS: BP 126/70; PULSE 83; RESP 20; TEMP 36.4; O2SAT 95
[2019-11-26] MEDS: ESCITALOPRAM OXALATE 5 MG TABLET PO (08:38)
[2019-11-26] MEDS: LOVASTATIN 20 MG TABLET PO (08:38)
[2019-11-26] MEDS: lisinopriL 10 MG TABLET PO (08:38)
[2019-11-26] MEDS: PANTOPRAZOLE 40 MG TABLET PO ×2 (08:39→17:54)
[2019-11-26] MEDS: TIZANIDINE HCL 4 MG TABLET PO (11:05)
--- NOTE | 2019-11-26 13:01 | WPDNEURORHBP ---
Subjective Date/time seen: 11/26/19 13:01 Interval history: patient when she is lying down is doing fairly well however it is difficult for her to take a few steps event because of the pain she experiences at the surgical site she does well while in the wheelchair Otherwise he does not have chest pain or shortness of breath no fever chills or sore throat Review of Systems Constitutional: Constitutional: Reports no additional constitutional complaints Eyes: Eyes: Reports no additional eye complaints ENT: Reports system reviewed and no additional complaints, except as documented Cardiovascular: Cardiovascular: Reports no additional cardiovascular complaints Respiratory: Respiratory: Reports no additional respiratory complaints Musculoskeletal: Musculoskeletal: Reports no additional musculoskeletal complaints Integumentary/Breasts: Skin/Breast: Reports system reviewed and no additional complaints, except as docu Neurologic: Comments: patient's mental status and cranial nerve examination is fairly decent and within the normal range the strength in the lower extremities also seems to be intact but she has difficult time managing the pain are dealing with the pain when she stands overall neurological examination remains stable Psychiatric: Psychiatric: Reports no additional psychiatric complaints Functional Status Ambulation Ability Ability to Ambulate 10 Feet: Moderate Assistance X 1 Ability to Ambulate 50 Feet With 2 Turns: Moderate Assistance X 2 Ambulation Assistive Devices: Parallel Bars Transfers Ability Ability to Transfer In/Out of Chair: Maximum Assistance X 1 Exam Const: General: no acute distress and uncomfortable HENMT: General nose exam: Normal nares present Mouth: Yes moist mucous membranes Eyes: General: appearance normal, both eyes and all related structures Neck: Neck: supple and no JVD Resp: Effort & Inspection: normal respiratory effort Auscultation: clear to auscultation bilaterally Cardio: Rate: regular rate Rhythm: regular rhythm GI: GI Palp: Yes Soft to palpation Auscultation: normal bowel sounds Skin: General skin exam: normal color and no rashes or lesions noted Neuro: Other: overall patient's neuro exam is stable however is still she has difficult time standing up and moving forward in an upright position she will need better pain control hopefully to engage in therapy Extrem: General: normal to inspection Objective Data Vital Signs Vital Signs: Vital Signs - 24 hr 11/25/19 14:38 11/25/19 22:00 11/26/19 06:00 Temperature 36.9 C 36.2 C L 36.4 C L Pulse Rate 90 95 83 Respiratory Rate 18 24 H 20 Blood Pressure 120/43 L 135/93 H 126/70 Pulse Oximetry 96 97 95 Intake/Output Intake/Output: Intake & Output 11/23/19 11/24/19 11/25/19 11/26/19 23:59 23:59 23:59 23:59 Intake Total 520 960 720 240 Balance 520 960 720 240 Meds/Results Medications: Active Medications Generic Name Dose Route Start Last Admin Trade Name Freq PRN Reason Stop Dose Admin Alendronate Sodium 70 mg 11/17/19 06:30 11/24/19 06:03 Fosamax PO 70 mg Fournier@0630 RYAN Administration Enoxaparin Sodium 30 mg 11/16/19 21:00 11/25/19 21:14 Lovenox SUB-Q 30 mg HS RYAN Administration Escitalopram Oxalate 5 mg 11/24/19 09:00 11/26/19 08:38 Lexapro PO 5 mg QAM RYAN Administration Lisinopril 10 mg 11/17/19 09:00 11/26/19 08:38 Prinivil PO 10 mg DAILY RYAN Administration Lovastatin 20 mg 11/17/19 09:00 11/26/19 08:38 Lovastatin PO 20 mg DAILY RYAN Administration Oxycodone HCl 10 mg 11/26/19 13:00 Roxicodone Ir Tablet PO Q4H RYAN Pantoprazole Sodium 40 mg 11/16/19 17:00 11/26/19 08:39 Protonix PO 40 mg BID RYAN Administration Polyethylene Glycol 17 gm 11/25/19 23:24 11/26/19 05:13 Miralax PO 17 gm QAM PRN Administration Constipation Tizanidine HCl 4 mg 11/16/19 15:27 11/26/19 11:05 Zanaflex PO 4 mg Q6H MO
[2019-11-26 14:00] VITALS: BP 110/52; PULSE 92; RESP 16; TEMP 36.1; O2SAT 95
[2019-11-26] MEDS: ENOXAPARIN 30 MG/0.3 ML SYRINGE SUB-Q (20:34)
[2019-11-26 22:00] VITALS: BP 142/85; PULSE 111; RESP 20; TEMP 36.6; O2SAT 95
[2019-11-27 05:50] VITALS: BP 141/47; PULSE 94; RESP 18; TEMP 37.1; O2SAT 96
[2019-11-27] MEDS: lisinopriL 10 MG TABLET PO (09:42)
[2019-11-27] MEDS: ESCITALOPRAM OXALATE 5 MG TABLET PO (09:42)
[2019-11-27] MEDS: TIZANIDINE HCL 4 MG TABLET PO (09:42)
[2019-11-27] MEDS: PANTOPRAZOLE 40 MG TABLET PO ×2 (09:43→17:48)
[2019-11-27] MEDS: LOVASTATIN 20 MG TABLET PO (09:43)
--- NOTE | 2019-11-27 11:00 | PCOTNOTE ---
Attempted OT session with patient, but therapist was unable to rouse patient. Patient's significant other was present and stated she was out of it and unable to participate in therapy at this time. Per conversation with nursing, patient had too much medication and was unable to participate at this time.
--- NOTE | 2019-11-27 13:05 | PC.NURSE ---
Per Dr. Guerra, to hold noon dose of roxycodone and have decreased dosage to 2.5mg r/t difficult in arousing and decreased BP 64/47. To also hold Lisinopril x2 days as well.
[2019-11-27 14:00] VITALS: BP 126/52; PULSE 99; RESP 16; TEMP 36.9; O2SAT 95
--- NOTE | 2019-11-27 14:20 | PCOTNOTE ---
Attempted OT session with patient, and patient attempted to perform oral care, but required MOD A compared to the prior day when she needed standby assist. Patient is very lethargic and didn't appear to understand the steps to brush her teeth. Therapist attempted other interventions with patient, but patient refused other ADLs, functional activities and exercises.
--- NOTE | 2019-11-27 14:41 | WPDNEURORHBP ---
Subjective Date/time seen: 11/27/19 14:41 Interval history: patient denies any pain however earlier today according to the nursing she was hypotensive and was not responding as well it is most likely related to the oxycodone which I have already decrease it and the patient is feeling relatively much better and remains awake and alert following commands and in fact denying any pain in her back or spine while laying down Review of Systems Constitutional: Constitutional: Reports no additional constitutional complaints Eyes: Eyes: Reports no additional eye complaints ENT: Reports system reviewed and no additional complaints, except as documented Cardiovascular: Cardiovascular: Reports no additional cardiovascular complaints Respiratory: Respiratory: Reports no additional respiratory complaints Gastrointestinal: Gastrointestinal: Reports no additional gastrointestinal complaints Genitourinary: Genitourinary: Reports no additional female genitourinary complaints Musculoskeletal: Musculoskeletal: Reports no additional musculoskeletal complaints Integumentary/Breasts: Skin/Breast: Reports system reviewed and no additional complaints, except as docu Neurologic: Reports system reviewed and no additional complaints, except as documented Psychiatric: Psychiatric: Reports no additional psychiatric complaints Functional Status Ambulation Ability Ability to Ambulate 10 Feet: Moderate Assistance X 1 Ability to Ambulate 50 Feet With 2 Turns: Moderate Assistance X 2 Ambulation Assistive Devices: Parallel Bars Transfers Ability Ability to Transfer In/Out of Chair: Maximum Assistance X 1 Exam Const: General: comfortable and no acute distress HENMT: General nose exam: Normal nares present Mouth: Yes moist mucous membranes Eyes: General: appearance normal, both eyes and all related structures Neck: Neck: supple and no JVD Resp: Effort & Inspection: normal respiratory effort Auscultation: clear to auscultation bilaterally Cardio: Rate: regular rate Rhythm: regular rhythm GI: GI Palp: Yes Soft to palpation Auscultation: normal bowel sounds Skin: General skin exam: normal color and no rashes or lesions noted Neuro: Other: patient is much more alert comparing to this morning examination she is well oriented time place and person however 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 which I did not expect her to laying in the bed there is no lateralizing focal motor deficit but she definitely is weak in her legs related to the fracture followed by the surgery to her spine or other significant lumbar stenosis Extrem: General: normal to inspection Objective Data Vital Signs Vital Signs: Vital Signs - 24 hr 11/26/19 22:00 11/27/19 05:50 Temperature 36.6 C 37.1 C Pulse Rate 111 H 94 Respiratory Rate 20 18 Blood Pressure 142/85 H 141/47 H Pulse Oximetry 95 96 Intake/Output Intake/Output: Intake & Output 11/24/19 11/25/19 11/26/19 11/27/19 23:59 23:59 23:59 23:59 Intake Total 960 720 480 Balance 960 720 480 Meds/Results Medications: Active Medications Generic Name Dose Route Start Last Admin Trade Name Freq PRN Reason Stop Dose Admin Alendronate Sodium 70 mg 11/17/19 06:30 11/24/19 06:03 Fosamax PO 70 mg Fournier@0630 RYAN Administration Enoxaparin Sodium 30 mg 11/16/19 21:00 11/26/19 20:34 Lovenox SUB-Q 30 mg HS RYAN Administration Escitalopram Oxalate 5 mg 11/24/19 09:00 11/27/19 09:42 Lexapro PO 5 mg QAM RYAN Administration Lisinopril 10 mg 11/17/19 09:00 11/27/19 09:42 Prinivil PO 10 mg DAILY RYAN Administration Lovastatin 20 mg 11/17/19 09:00 11/27/19 09:43 Lovastatin PO 20 mg DAILY RYAN Administration Oxycodone HCl 2.5 mg 11/27/19 13:00 11/27/19 13:04 Roxicodone Ir Tablet PO Not Given Q4HR RYAN Pantoprazole Sodium 40 mg 11/16/19 17:00 11/27/19 09:43 Protonix PO 40 mg BID RYAN Administration Polyethylene Glycol 17 gm 10/31
--- NOTE | 2019-11-27 16:09 | PCPTNOTE ---
The patient treatment was not able to be completed on 11/27/2019 due to patient refusing to continue with PT session. Will plan to continue treatment per plan of care.
[2019-11-27] MEDS: ENOXAPARIN 30 MG/0.3 ML SYRINGE SUB-Q (21:46)
[2019-11-27 22:00] VITALS: BP 132/54; PULSE 103; RESP 17; TEMP 37.3; O2SAT 93
[2019-11-28 06:00] VITALS: BP 155/58; PULSE 94; RESP 17; TEMP 37.4; O2SAT 94
[2019-11-28 08:00] VITALS: PULSE 105; RESP 20; O2SAT 93
[2019-11-28] MEDS: LOVASTATIN 20 MG TABLET PO (10:02)
[2019-11-28] MEDS: ESCITALOPRAM OXALATE 5 MG TABLET PO (10:02)
[2019-11-28] MEDS: PANTOPRAZOLE 40 MG TABLET PO ×2 (10:02→17:30)
--- NOTE | 2019-11-28 12:16 | WPDNEURORHBP ---
Subjective Date/time seen: 11/28/19 12:16 Interval history: she is sitting in the chair and quite comfortable however still has trouble taking the steps complaining of leg weakness and buckling otherwise in the bed she is able to move her legs quite well without any evidence of focal or lateralized deficit Review of Systems Constitutional: Constitutional: Reports no additional constitutional complaints Eyes: Eyes: Reports no additional eye complaints ENT: Reports system reviewed and no additional complaints, except as documented Cardiovascular: Cardiovascular: Reports no additional cardiovascular complaints Respiratory: Respiratory: Reports no additional respiratory complaints Gastrointestinal: Gastrointestinal: Reports no additional gastrointestinal complaints Genitourinary: Genitourinary: Reports no additional female genitourinary complaints Musculoskeletal: Musculoskeletal: Reports no additional musculoskeletal complaints Integumentary/Breasts: Skin/Breast: Reports system reviewed and no additional complaints, except as docu Neurologic: Reports system reviewed and no additional complaints, except as documented Psychiatric: Psychiatric: Reports no additional psychiatric complaints Functional Status Ambulation Ability Ability to Ambulate 10 Feet: Moderate Assistance X 1 Ability to Ambulate 50 Feet With 2 Turns: Moderate Assistance X 2 Ambulation Assistive Devices: Parallel Bars Transfers Ability Ability to Transfer In/Out of Chair: Maximum Assistance X 1 Exam Const: General: comfortable and no acute distress HENMT: General nose exam: Normal nares present Mouth: Yes moist mucous membranes Eyes: General: appearance normal, both eyes and all related structures Neck: Neck: supple and no JVD Resp: Effort & Inspection: normal respiratory effort Auscultation: clear to auscultation bilaterally Cardio: Rate: regular rate Rhythm: regular rhythm GI: GI Palp: Yes Soft to palpation Auscultation: normal bowel sounds Back/Spine/Pelvis: Other: the incision in the thoracolumbar area is clean and healthy Skin: General skin exam: normal color and no rashes or lesions noted Neuro: Other: patient has lower extremity weakness more so than the upper extremity which has improved however she is not really walking much and claims that the pain gets so severe that she is unable to walk Extrem: General: normal to inspection Objective Data Vital Signs Vital Signs: Vital Signs - 24 hr 11/27/19 14:00 11/27/19 22:00 11/28/19 06:00 Temperature 36.9 C 37.3 C 37.4 C Pulse Rate 99 103 H 94 Respiratory Rate 16 17 17 Blood Pressure 126/52 L 132/54 L 155/58 H Pulse Oximetry 95 93 94 Intake/Output Intake/Output: Intake & Output 11/25/19 11/26/19 11/27/19 11/28/19 23:59 23:59 23:59 23:59 Intake Total 720 480 50 120 Balance 720 480 50 120 Meds/Results Medications: Active Medications Generic Name Dose Route Start Last Admin Trade Name Freq PRN Reason Stop Dose Admin Alendronate Sodium 70 mg 11/17/19 06:30 11/24/19 06:03 Fosamax PO 70 mg Fournier@0630 RYAN Administration Enoxaparin Sodium 30 mg 11/16/19 21:00 11/27/19 21:46 Lovenox SUB-Q 30 mg HS RYAN Administration Escitalopram Oxalate 5 mg 11/24/19 09:00 11/28/19 10:02 Lexapro PO 5 mg QAM RYAN Administration Lisinopril 10 mg 11/17/19 09:00 11/27/19 09:42 Prinivil PO 10 mg DAILY RYAN Administration Lovastatin 20 mg 11/17/19 09:00 11/28/19 10:02 Lovastatin PO 20 mg DAILY RYAN Administration Oxycodone HCl 2.5 mg 11/28/19 01:00 11/28/19 10:02 Roxicodone Ir Tablet PO 2.5 mg Q4HR RYAN Administration Pantoprazole Sodium 40 mg 11/16/19 17:00 11/28/19 10:02 Protonix PO 40 mg BID RYAN Administration Polyethylene Glycol 17 gm 11/25/19 23:24 11/26/19 05:13 Miralax PO 17 gm QAM PRN Administration Constipation Tizanidine HCl 4 mg 11/16/19 15:27 11/27/19 09:42 Zanaflex PO
[2019-11-28 14:00] VITALS: BP 110/53; PULSE 105; RESP 20; TEMP 37.3; O2SAT 93
[2019-11-28] MEDS: ENOXAPARIN 30 MG/0.3 ML SYRINGE SUB-Q (20:32)
[2019-11-28 22:00] VITALS: BP 111/52; PULSE 96; RESP 18; TEMP 37.1; O2SAT 96
[2019-11-29 06:00] VITALS: BP 114/54; PULSE 88; RESP 18; TEMP 36.8; O2SAT 92
[2019-11-29] MEDS: ESCITALOPRAM OXALATE 5 MG TABLET PO (09:01)
[2019-11-29] MEDS: LOVASTATIN 20 MG TABLET PO (09:01)
[2019-11-29] MEDS: PANTOPRAZOLE 40 MG TABLET PO (09:01)
--- NOTE | 2019-11-29 11:57 | WPDNEURORHBP ---
Subjective Date/time seen: 11/29/19 11:57 Interval history: patient is ready to be [facility] as she has not progressed here in our acute rehab and has not been able to tolerate the therapy as is desirable On the lower hand patient remains afebrile without any significant complaints while she is lying in the bed or sitting no chest pain no shortness of breath no double vision blurred vision or any lateralizing focal deficit Review of Systems Constitutional: Constitutional: Reports no additional constitutional complaints Eyes: Eyes: Reports no additional eye complaints ENT: Reports system reviewed and no additional complaints, except as documented Cardiovascular: Cardiovascular: Reports no additional cardiovascular complaints Respiratory: Respiratory: Reports no additional respiratory complaints Gastrointestinal: Gastrointestinal: Reports no additional gastrointestinal complaints Genitourinary: Genitourinary: Reports no additional female genitourinary complaints Musculoskeletal: Musculoskeletal: Reports no additional musculoskeletal complaints Integumentary/Breasts: Skin/Breast: Reports system reviewed and no additional complaints, except as docu Neurologic: Reports system reviewed and no additional complaints, except as documented Psychiatric: Psychiatric: Reports no additional psychiatric complaints Functional Status Ambulation Ability Ability to Ambulate 10 Feet: Moderate Assistance X 1 Ability to Ambulate 50 Feet With 2 Turns: Moderate Assistance X 2 Ambulation Assistive Devices: Parallel Bars Transfers Ability Ability to Transfer In/Out of Chair: Maximum Assistance X 1 Exam Const: General: comfortable and no acute distress HENMT: General nose exam: Normal nares present Mouth: Yes moist mucous membranes Eyes: General: appearance normal, both eyes and all related structures Neck: Neck: supple and no JVD Resp: Effort & Inspection: normal respiratory effort Auscultation: clear to auscultation bilaterally Cardio: Rate: regular rate Rhythm: regular rhythm GI: GI Palp: Yes Soft to palpation Auscultation: normal bowel sounds Skin: General skin exam: normal color and no rashes or lesions noted Neuro: Other: patient's mental status is normal cranial nerve examination is normal she has generalized weakness lower extremities more so than the upper extremities which really has not changed much on the other hand the strength probably has improved but she is unable to engage in therapy because of the pain and discomfort she has at the thoracolumbar spine after having had the surgery performed Extrem: General: normal to inspection Objective Data Vital Signs Vital Signs: Vital Signs - 24 hr 11/28/19 14:00 11/28/19 22:00 11/29/19 06:00 Temperature 37.3 C 37.1 C 36.8 C Pulse Rate 105 H 96 88 Respiratory Rate 20 18 18 Blood Pressure 110/53 L 111/52 L 114/54 L Pulse Oximetry 93 96 92 Intake/Output Intake/Output: Intake & Output 11/26/19 11/27/19 11/28/19 11/29/19 23:59 23:59 23:59 23:59 Intake Total 480 50 480 240 Balance 480 50 480 240 Meds/Results Medications: Active Medications Generic Name Dose Route Start Last Admin Trade Name Freq PRN Reason Stop Dose Admin Alendronate Sodium 70 mg 11/17/19 06:30 11/24/19 06:03 Fosamax PO 70 mg Fournier@0630 RYAN Administration Enoxaparin Sodium 30 mg 11/16/19 21:00 11/28/19 20:32 Lovenox SUB-Q 30 mg HS RYAN Administration Escitalopram Oxalate 5 mg 11/24/19 09:00 11/29/19 09:01 Lexapro PO 5 mg QAM RYAN Administration Lisinopril 10 mg 11/17/19 09:00 11/27/19 09:42 Prinivil PO 10 mg DAILY RYAN Administration Lovastatin 20 mg 11/17/19 09:00 11/29/19 09:01 Lovastatin PO 20 mg DAILY RYAN Administration Oxycodone HCl 2.5 mg 11/28/19 01:00 11/29/19 09:02 Roxicodone Ir Tablet PO 2.5 mg Q4HR RYAN Administration Pantoprazole Sodium 40 mg 11/16/19 17:00 11/29/19 09:01
--- NOTE | 2019-11-29 13:59 | PCDIET ---
Nutrition Follow-Up Complete: Nutrition Diagnosis: Inadequate energy intake related to decreased appetite as evidenced by unintentional weight loss of 7.2 kg since March and reported intake. Nutrition Goals: Patient will consume >70% of all meals and all dietary supplements. Goal not met. Average intake from 11/22/19 was 55% of meals on regular diet. Patient does take some of the Ensure Compact supplement which is appropriate, along with regular diet. Last recorded weight is 50.1 kg. Recommend obtaining new weight. Bowel Motility: Last documented bowel movement on 11/27/19. Labs Reviewed: Hgb (8.5), Hct (27.2) Meds Noted: Fosamax, Protonix, Miralax Additional Notes: Lower back incision well-approximated; no documented pressure ulcers. Will continue to monitor with same goals. Nutrition Monitoring and Evaluation: Will follow up in 5 days.
--- NOTE | 2019-12-05 06:01 | DS_ITS ---
DATE OF DISCHARGE: 11/29/2019 Discharge primary rehab impairment category is neurological condition with etiological diagnosis of lumbar spondylolisthesis and stenosis with neurogenic claudication. DISCHARGE ACTIVE COMORBID CONDITIONS: 1. Arthritis. 2. Hypertension. 3. GERD. REASON FOR ADMISSION: An 84-year-old, right-handed female, presented to [facility] on 11/11/2019 for an elective L4-5 posterior lumbar interbody fusion. She underwent laminectomy, facetectomy, foraminotomy, and resection of abnormal facet joints at the level of L4-5 and L4-5 instrumentation, and L4-5 posterolateral arthrodesis and L4-5 diskectomy with posterior interbody fusion at 11/11/2019. Postoperatively, she developed pain, anemia, impaired mobility, impaired ability to perform activities of daily living independently. She was to wear a self Equinunk brace when out of bed and ambulating and she will be able to remove it in bed for hygiene purposes, but otherwise no restriction. She received oral pain medication when discharge to rehab with Lovenox for DVT prophylaxis. LEVEL OF FUNCTION AT THE TIME OF ADMISSION: She required setup for eating, supervision for oral hygiene, dependent for toileting, dependent for bathing, partial assistance for upper body dressing, dependent for lower body dressing, footwear; supervision for rolling in bed, dependent for sit to lying, partial assistance for lying to sitting, dependent for sit to stand, chair transfer, toilet transfer with substantial assistance. She was dependent for car transfers. She was unable to walk curb or step, 4 steps, 12 steps. She was unable to pickup objects and the wheelchair was not applicable. Anticipated rehab goals at the time of admission were to make her independent eating and oral hygiene, required only partial assistance for toileting and bathing, supervision for upper body dressing, partial assistance for lower body dressing and footwear; make her independent rolling in bed, setup for sit to lying, lying to sitting, sit to stand, chair transfer, car transfer, walking 10 feet, 50 feet with 2 turns, 150 feet, and 10 feet on uneven surfaces, required only supervision for toilet transfer, partial assistance for curb or step, 4 steps, 12 steps and required setup only for picking up object. LEVEL OF FUNCTION AT THE TIME OF DISCHARGE: The patient required only setup for eating. She became independent of oral hygiene. She required substantial assistance for toileting. She required partial assistance for bathing, upper body, lower body dressing, footwear, rolling in bed, sit to lying, lying to sitting, but she required substantial assistance for sit to stand, chair transfer, and toilet transfer. She was unable to do the car transfer. She was dependent for 10 feet walking and she was unable to walk 50 feet with turns. She was unable to do the curb or step, 4 steps, 12 steps, picking up object, and wheelchair for 150 feet, but she required supervision for wheelchair for 50 feet. HOSPITAL COURSE: During the hospitalization, the patient was involved in the physical therapy and occupational therapy on a regular basis. No other consultants were involved in the care. At the time of discharge, the general physical examination was stable, so as the neuro examination. She was able to ambulate up to 450 feet with 2 turns with moderate assistance of 2 and also requiring the parallel bars. She was able to transfer in and out of chair with maximum assistance of 1. DISCHARGE INSTRUCTIONS: No driving for activity as tolerated. Regular diet and follow all other instructions. DISCHARGE MEDICATIONS: 1. Lovenox 30 mg subcu at bedtime. 2. Escitalopram 5 mg q.a.m. 3. Oxycodone 5 mg q.8 hours. 4. MiraLAX 17 g q.a.m. 5. Alendronate 70 mg weekly. 6. Lovastatin
== END 2019-11-29 16:18 | DRG 561 ==
PROVIDERS: Admitting Provider Psychiatry & Neurology Neurology; PCP Internal Medicine; Visit Provider Psychiatry & Neurology Neurology
DX: Z47.89 Encounter for other orthopedic aftercare (principal); M43.16 Spondylolisthesis, lumbar region; M48.062 Spinal stenosis, lumbar region with neurogenic claudication; M19.90 Unspecified osteoarthritis, unspecified site; D64.9 Anemia, unspecified; E78.5 Hyperlipidemia, unspecified; F32.9 Major depressive disorder, single episode, unspecified; I10 Essential (primary) hypertension; K21.9 Gastro-esophageal reflux disease without esophagitis; M81.0 Age-related osteoporosis without current pathological fracture; R06.09 Other forms of dyspnea; Z87.891 Personal history of nicotine dependence; Z96.652 Presence of left artificial knee joint; Z98.1 Arthrodesis status
CPT/HCPCS: 36415; 80048; 85025; 87081; 97110; 97116; 97150; 97162; 97166; 97530; 97535; 97542; A9270; J1650

== ENCOUNTER 2020-01-17 05:54 | Inpatient (IN) | payer MEDICARE, OTHER, SELFPAY ==
[2020-01-17] VITALS (22 sets, daily range): BP systolic 86–172; BP diastolic 41–83; PULSE 76–108; RESP 14–24; TEMP 36.3–38.3; O2SAT 95–100; BMI 21.9
--- NOTE | ~2020-01-17 | XR_ITS ---
EXAMINATION: XR abdomen NG/feed tube insert EXAM DATE: 01/17/2020 08:11 INDICATION: Feeding tube placement. TECHNIQUE: Frontal projection(s) of the abdomen for interpretation. There is no prior study for rodolfo romero. FINDINGS: There is moderate-sized gastroesophageal hiatal hernia. The feeding tube is in position. L alona bases unremarkable. Upper abdominal bowel gas pattern is nonobstructive. Lower lumbar fusion hard figueroa. IMPRESSION: Moderate-sized hiatal hernia. Feeding tube in position. Reviewed, dictated and finalized at location A.
--- NOTE | ~2020-01-17 | XR_ITS ---
XR chest 1V portable DATE: 01/17/2020 13:27 INDICATION: Hemoptysis TECHNIQUE: Portable AP chest on 01/17/2020 at 1324 hours COMPARISON: None FINDINGS: There is minimal patchy infiltrate suggested in the right mid to upper lung. The remaining lung dee appear clear. Normal heart size. There is aortic calcification. No hilar or mediastinal enlargement. No pleural effusion or pulmonary vascular congestion or pneumothorax. Lumbar spinal fusion hardware is incidentally noted. IMPRESSION: Mild focal patchy infiltrate in the right mid upper lung Reviewed, dictated and finalized at location B.
--- NOTE | ~2020-01-17 | US_ITS ---
US renal BI 01/19/2020 10:48 Procedure: Realtime transabdominal ultrasound of the kidneys and bladder. Indication: Acute renal insufficiency Comparison: No prior studies for comparison. Findings: Renal echotexture is normal bilaterally without hydronephrosis, contour deforming mass or r enal calculus. There is a 2.8 cm right renal cyst. The right kidney measures 11 cm and left kidney me asures 9.4 cm. Bladder contains a Sarmiento catheter with possible mild bladder wall thickening, although this could be due to underdistention. Impression: 1: 2.8 cm right renal cyst. 2: Sarmiento catheter in the bladder. Possible mild bladder wall thickening versus underdistention. Cons ider cystitis in the appropriate clinical setting.. Reviewed, dictated and finalized at location A. Impression: 1: 2.8 cm right renal cyst. 2: Sarmiento catheter in the bladder. Possible mild bladder wall thickening versus underdistention. Consider cystitis in the appropriate clinical setting..
--- NOTE | 2020-01-17 06:22 | ED.GIBLEED ---
HPI - GI Bleed General Chief complaint: GI Bleed Stated complaint: vomiting Time Seen by Provider: 01/17/20 06:06 History of Present Illness HPI Narrative: Brought in by EMS from detention for suspected upper GI bleed. When staff went to check on her this morning she was noted to have coffee ground appearing emesis on her pillow and mouth. On arrival to the ED she has no complaints and does not remember vomiting. SHe is unsure if she has any h/o GI bleed. She was recently in rehab here following surgery and was noted to have acute blood loss anemia. IOn my review of the chart it was not clear what the source of bleeding was at that time. History limited due to dementia. Related Data Home Medications Medication Instructions Recorded Confirmed alendronate 70 mg PO WEEKLY 11/16/19 01/17/20 lovastatin 20 mg PO DAILY 11/16/19 01/17/20 omeprazole 20 mg PO BID 11/16/19 01/17/20 tizanidine 4 mg PO Q6H PRN 11/16/19 01/17/20 escitalopram oxalate 5 mg PO QAM 01/17/20 01/17/20 Allergies Allergy/AdvReac Type Severity Reaction Status Date / Time cefuroxime Allergy Unknown Unknown Verified 04/10/19 16:07 Review of Systems Review of Systems: All systems reviewed & are unremarkable except as noted in HPI and below Constitutional: Constitutional: Denies chills and Denies fever(s) ENT: Denies sore throat Cardiovascular: Cardiovascular: Denies chest pain Respiratory: Respiratory: Denies dyspnea Gastrointestinal: Gastrointestinal: Denies nausea and Denies vomiting Genitourinary: Genitourinary: Denies dysuria Neurologic: Denies dizziness and Denies weakness [facility] Past Medical History Medical History (Updated 01/17/20 @ 16:46 by Micky Danielle MD) GERD (gastroesophageal reflux disease) GI bleeding Hypertension Neurogenic claudication Spondylolisthesis, lumbar region Family History Family History Mother Diabetes mellitus Social History Social History Smoking status: Former smoker Tobacco type: cigarettes Smoking end date: 10/30/1964 Alcohol intake: never Substance use: never Gender identity (if verbalized by the patient): Female Spiritual care concerns: No Agree to blood products: Yes Exam Const: General: no acute distress and alert Nutritional Appearance: thin Orientation/consciousness: patient oriented x3 HENMT: Mouth: Yes dry mucous membranes Other: Dried blood on lips and tongue. diffuse dental disease. No source of bleeding identified in mouth or nose Eyes: Pupils: Equal, round and reactive pupils present Resp: Effort & Inspection: normal respiratory effort Auscultation: clear to auscultation bilaterally Cardio: Rate: regular rate Rhythm: regular rhythm GI: GI Palp: Yes Soft to palpation and No Tenderness to palpation present (GI) Skin: General skin exam: pallor Neuro: General: patient oriented x3 and moves all extremities Speech: normal speech Course Vital Signs Vital signs: Vital Signs Temperature 36.9 C 01/17/20 05:55 Pulse Rate 98 01/17/20 05:55 Respiratory Rate 14 01/17/20 05:55 Blood Pressure 148/69 H 01/17/20 05:55 Pulse Oximetry 96 01/17/20 05:55 Temperature 37.7 C H 01/17/20 16:30 Pulse Rate 103 H 01/17/20 16:30 Respiratory Rate 20 01/17/20 16:30 Blood Pressure 134/63 01/17/20 16:30 Pulse Oximetry 97 01/17/20 16:30 MDM - GI Bleed Differential Diagnosis Differential diagnosis: Likely Petrona-Stern syndrome and other (Ulcer, varices, nose bleed, dental bleeding) Medical Records Attestation: I reviewed the patient's medical records. Lab Data Attestation: I reviewed the patient's lab results. Result diagrams: 01/17/20 16:10 01/17/20 06:22 Labs: Lab Results 01/17/20 01/17/20 01/17/20 Range/Units 06:21 06:22 06:22 WBC 5.6 (4.5-10.0) K/mm3 RBC 3.11 L (4.2-5.4)
[2020-01-17 06:29] LABS: Basophils Percent Auto 0.4 % (0.2-1.2); Eosinophils Absolute Auto 0.1 K/mm3 (0-0.3); Eosinophils Percent Auto 1.3 % (0-4.4); Hematocrit 26.5 % (37.0-47.0); Hemoglobin 7.9 g/dL (12.0-15.0); Immature Granulocyte Absolute 0.03 K/mm3 (0.00-0.031); Immature Granulocyte Percent A 0.5 % (0-0.5); Lymphocytes Absolute Auto 1.67 K/mm3 (0.9-3.2); Lymphocytes Percent Auto 29.9 % (18.3-44.2); Mean Corpuscular HGB Conc 29.8 g/dl (32-36); Mean Corpuscular Hemoglobin 25.4 pg (26-34); Mean Corpuscular Volume 85.2 fl (80-100); Mean Platelet Volume 8.4 fl (7.4-10.4); Monocytes Absolute Auto 0.5 K/mm3 (0.1-0.6); Monocytes Percent Auto 9.3 % (2.6-8.5); Neutrophils Absolute Auto 3.3 K/mm3 (1.3-6.7); Neutrophils Percent Auto 58.6 % (45.5-73.1); Platelet Count Result 637 k/mm3 (150-375); Red Blood Count 3.11 M/mm3 (4.2-5.4); Red Cell Distribution Width 15.8 % (11.5-14.5); White Blood Count 5.6 K/mm3 (4.5-10.0)
[2020-01-17 06:39] LABS: INR 1.2; Prothrombin Time 14.4 Seconds (11.1-14.7)
[2020-01-17 06:40] LABS: Partial Thromboplastin Time 26.6 SECONDS (22.3-36.8)
[2020-01-17 06:44] LABS: Alanine Aminotransferase 11 U/L (4-35); Albumin Level 3.1 g/dL (3.5-5.1); Alkaline Phosphatase 70 U/L (38-126); Aspartate Amino Transferase 23 U/L (14-36); Bilirubin,Total 0.3 mg/dL (0.2-1.3); Blood Urea Nitrogen 40 mg/dL (7-17); Calcium 8.6 mg/dL (8.4-10.2); Carbon Dioxide 28 mmol/L (22-30); Chloride 104 mmol/L (98-107); Estimated CRCL calculation 15 ml/min; Estimated Glomerular Filt Rate 27; Glucose 100 mg/dL (65-105); Potassium 4.7 mmol/L (3.4-5.0); Sodium 138 mmol/L (137-145)
[2020-01-17] MEDS: SODIUM CHLORIDE 0.9% IV 1,000 ML 999 ML IV CONT (06:46)
[2020-01-17] MEDS: PANTOPRAZOLE SODIUM IV 40 MG VIAL IV PUSH ×2 (06:46→21:09)
--- NOTE | 2020-01-17 10:17 | PC.NURSE ---
Report given to VICKI Soto on 3rd floor.
[2020-01-17] MEDS: LACTATED RINGERS 1,000 ML 150 ML IV CONT (10:26)
--- NOTE | 2020-01-17 10:46 | WPDGICN ---
Assessment and Plan Additional Plan This is an 81-year-old white female patient mass to see at the request of the emergency room. Patient currently in rehab. She was noted to have coffee-grounds about her mouth and pillow this morning and sent to [facility]. I am asked to see her for possible upper GI blood loss. Patient denies abdominal pain. She denies prior ulcers. the patient and her son report that after presented the hospital she has been coughing with coffee-ground return in her sputum. No vomiting has been described further visualized. Past medical history is significant for lumbar spine surgery in October. She was at our hospital in October for rehabilitation. At that time her hemoglobin was in the 8 to day hemoglobin 7.9 is only mildly decreased. Patient denies abdominal pain. Past medical history is significant for GE reflux disease, hypertension. Status post recent spine surgery. Medications at the care center include alendronate, enoxaparin, escitalopram, lovastatin, omeprazole, oxycodone, MiraLax. tramadol allergy reported to cefuroxime. Family history noncontributory. Physical exam reveals her to be alert. Anicteric. HEENT exam unremarkable. Lungs are clear To auscultation and percussion. Heart without murmur. Abdomen is soft and nontender. No organomegaly is evident. Labs reveal WBC 5.6, hemoglobin 7.9, hematocrit 26.5, MCV 85. BUN 40 creatinine 1.8. LFTs within normal limit Impression 1. Coffee-ground at her mouth. Concern for possible hematemesis. However hemoptysis is likely. 2. Chronic anemia. This is essentially unchanged from October. 3. Recent back surgery. Plan is for EGD to assess for possible upper GI bleeding. Chest x-ray if not are reobtained would be indicated. further recommendations may be given after endoscopy. GI Consult Note Consult date/time: 01/17/20 10:46 HPI: Caitie Saez is a 84 year old female [facility] Past Medical History Medical History (Updated 01/17/20 @ 10:08 by Anish Chavez MD) GERD (gastroesophageal reflux disease) GI bleeding Hypertension Neurogenic claudication Spondylolisthesis, lumbar region Family History Family History Mother Diabetes mellitus Social History Social History Smoking status: Former smoker Tobacco type: cigarettes Smoking end date: 10/30/1964 Alcohol intake: never Substance use: never Gender identity (if verbalized by the patient): Female Spiritual care concerns: No Agree to blood products: Yes Meds Home Medications and Allergies Home Medications Medication Instructions Recorded Confirmed Type alendronate 70 mg PO WEEKLY 11/16/19 11/16/19 History lovastatin 20 mg PO DAILY 11/16/19 11/16/19 History omeprazole 20 mg PO BID 11/16/19 11/16/19 History tizanidine 4 mg PO Q6H PRN 11/16/19 11/16/19 History enoxaparin 30 mg SUBCUT HS #0 ml 11/29/19 Rx escitalopram oxalate 5 mg PO QAM 30 Days #0 tablet 11/29/19 Rx oxycodone 5 mg PO Q8H PRN #14 tablet 11/29/19 Rx polyethylene glycol 3350 [Miralax] 17 g PO QAM PRN ea 11/29/19 Rx tramadol 50 mg tablet 50 mg PO Q8H PRN #60 tablet 12/19/19 Rx Allergies Allergy/AdvReac Type Severity Reaction Status Date / Time cefuroxime Allergy Unknown Unknown Verified 04/10/19 16:07 Vital Signs Vital Signs - 24 hr 01/17/20 05:55 01/17/20 06:07 01/17/20 08:47 Temperature 36.9 C Pulse Rate 98 96 100 Respiratory Rate 14 20 Blood Pressure 148/69 H 172/83 H Pulse Oximetry 96 99 01/17/20 09:43 01/17/20 10:14 Temperature 37.3 C Pulse Rate 102 H 101 H Respiratory Rate 18 19 Blood Pressure 169/77 H 156/67 H Pulse Oximetry 98 96 Results Labs CBC & Chem 7: 01/17/20 06:22 01/17/20 06:22 Labs: Short CBC 01/17/20 Range/Units 06:22 WBC 5.6 (4.5-10.0) K/mm3
--- NOTE | 2020-01-17 10:48 | SUR.OPER ---
NG TUBE REMOVED PER DR MILES DURING ENDOSCOPY PROCEDURE
[2020-01-17 13:02] LABS: Hematocrit 22.8 % (37.0-47.0)
--- NOTE | 2020-01-17 13:07 | ADMGEN ---
This patient, Caitie Saez, was admitted to [facility] Surg Room 321-. Patient/family oriented to hospital policies and general routines including ID bracelet, bed and alarms, visiting hours, pain management, procedures, bathroom and other care routines, personal items, smoking policy, room service/diet, and visiting hours. Valuables list has been completed. Information on how to activate the Rapid Response Team has been discussed. Patient/Family are encouraged to report perceived risks to care and to ask questions if they do not understand what they are told or what they should do.
[2020-01-17 13:08] LABS: Hemoglobin 6.8 g/dL (12.0-15.0)
--- NOTE | 2020-01-17 14:00 | PM.IMHP ---
H&P: HPI History of Present Illness Chief complaint: ?Coffee-ground emesis.? Narrative: Caitie Saez is an 84-year-old female with a relatively recent lumbar fusion, GERD, hyperlipidemia, dementia, and chronic anemia who was brought to the emergency department earlier this morning via EMS from a local rehab facility for evaluation of reported ?coffee-ground emesis.? She is not a good historian and is very forgetful. She indicates to me that she has chronic issues with her memory, and thus some of this medical history is obtained via a review of her electronic medical records. Her significant other was in the room at the time my evaluation, however he was on the phone and would not answer any questions while on the phone. She had lumbar spinal surgery at [facility] in [place] on 11/11/2019, and was admitted to [facility] November 16 for rehab. She was discharged to [facility] for long term on November 29 due to continued need for assistance; dependent for 10 feet walking and requiring substantial assistance for sit to stand, chair transfer, and toilet transfer. It looks like she has been receiving Lovenox 30 units subcu HS for DVT prophylaxis since admission to [facility]. This morning, staff noticed ?coffee-ground emesis? on the patient's pillow and in her mouth and thus sent her in for evaluation. Hemoglobin was 7.9 on arrival, with repeat level of 6.8. On review of previous labs, it looks like she has a mild, chronic anemia and in fact it was thought that she had acute blood loss anemia due to her surgery, as her hemoglobin was not at baseline on admission to [facility]. In any event, the patient does not really recall what happened this morning, but she does not believe she vomited nor does she think she has had epistaxis or hemoptysis. She does not believe that she has had any blood in her stool and also denies hematuria. At the time my evaluation, she reports feeling ?rough? but she is unable to provide me anything further. She denies feeling feverish and has not had chills or sweats. She denies headache. No sinus congestion, rhinorrhea, otalgia, or odynophagia. She denies cough. No chest pain or shortness of breath. Denies dysphagia and concerns for aspiration. She denies epigastric and abdominal pain. No nausea, vomiting, or diarrhea. She denies dysuria, urgency, and hesitancy. Review of Systems Review of Systems: Narrative: Twelve systems were reviewed with pertinent positives and negatives as per HPI. I do not think she is a reliable historian given her significant memory issues, however. She did not verbalize any specific complaints, and all systems were negative except for as documented in the HPI. [facility] Past Medical History Medical History (Updated 01/17/20 @ 20:08 by Ro Rossi PA-C) Anxiety Chronic anemia Dementia GERD (gastroesophageal reflux disease) Hyperlipidemia Hypertension Osteoarthritis Osteoporosis Spinal stenosis With spondylolisthesis and chronic back pain. Urinary incontinence Surgical History Surgical History (Updated 01/17/20 @ 19:58 by Ro Rossi PA-C) History of lumbosacral spine surgery Status post elective laminectomy, facetectomy, foraminotomy, and resection of abnormal facet joints at L4-L5, L4-L5 instrumentation, and L4-L5 posterior lateral arthrodesis and L4-L5 diskectomy and posterior interbody fusion 11/11/[address] Cathie Mcghee at [facility] in [place]. Status post hysterectomy Family History Family History Mother Diabetes mellitus Social History Social History (Updated 01/17/20 @ 20:00 by Ro Rossi PA-C) Social History: The patient lives in [place] with her significant other of 21 years. Her son, Sabino Saez, is her healthcare power of commercial attorney. She is listed as a DNR. She has a remote smoking history, quit 1964. No alcohol or drug abuse. Smoking status: Former smoker To
[2020-01-17 16:21] LABS: Hematocrit 21.5 % (37.0-47.0)
[2020-01-17 16:26] LABS: Hemoglobin 6.5 g/dL (12.0-15.0)
[2020-01-17 16:33] LABS: Blood Urea Nitrogen 36 mg/dL (7-17); Calcium 7.7 mg/dL (8.4-10.2); Carbon Dioxide 23 mmol/L (22-30); Chloride 104 mmol/L (98-107); Creatine Kinase 21 U/L (30-135); Estimated CRCL calculation 15 ml/min; Estimated Glomerular Filt Rate 27; Glucose 131 mg/dL (65-105); Influenza Control Positive; Sodium 134 mmol/L (137-145)
[2020-01-17 16:34] LABS: Lactic Acid Reflex 1.2 mmol/L (0.7-2.1); Magnesium 1.7 mg/dL (1.6-2.3); Phosphorus 3.8 mg/dL (2.5-4.5)
[2020-01-17 16:57] LABS: Iron 16 ug/dL (37-170)
[2020-01-17 17:07] LABS: Percent Iron Saturation 7 % (20-50)
[2020-01-17] MEDS: SODIUM CHLORIDE 0.9% IV 1,000 ML 100 ML IV CONT (17:28)
[2020-01-17 17:40] LABS: Folic Acid 16.7 ng/mL (2.76->20)
[2020-01-17] MEDS: ACETAMINOPHEN 325 MG TABLET 650 MG PO (18:31)
[2020-01-17 18:39] LABS: Add Urine Microscopic? YES; Appearance Urine Turbid (Clear); Bacteria Urine 4+ /hpf; Bilirubin Urine Negative (Negative); Blood Urine 2+ (Negative); Color Urine Yellow (Yellow); Glucose Urine UA Negative (Negative); Ketones Urine Negative (Negative); Leukocyte Esterase Ur 2+ LEU/UL (Negative); Mucus Urine Heavy /lpf; Nitrate Urine Positive (Negative); Protein Urine 2+ mg/dL (Negative); RBC Urine >75 /hpf (0-2); Specific Grav Ur 1.014 (1.001-1.035); Urobilinogen Urine Negative mg/dL (<2.0); WBC Urine >75 /hpf
[2020-01-17] MEDS: POLYSACCHARIDE IRON COMPLEX 150 MG CAPSULE PO (21:09)
[2020-01-17] MEDS: MIRTAZAPINE 15 MG TABLET PO (21:09)
[2020-01-17] MEDS: MEMANTINE 5 MG TABLET PO (21:09)
[2020-01-17 22:17] LABS: Hemoglobin 7.4 g/dL (12.0-15.0)
[2020-01-18] VITALS (10 sets, daily range): BP systolic 137–178; BP diastolic 56–76; PULSE 56–89; RESP 18–20; TEMP 36.4–36.9; O2SAT 96–100
[2020-01-18 04:18] LABS: Alanine Aminotransferase 10 U/L (4-35); Albumin Level 2.7 g/dL (3.5-5.1); Alkaline Phosphatase 61 U/L (38-126); Aspartate Amino Transferase 21 U/L (14-36); Bilirubin,Total 0.3 mg/dL (0.2-1.3); Blood Urea Nitrogen 33 mg/dL (7-17); Calcium 7.7 mg/dL (8.4-10.2); Carbon Dioxide 23 mmol/L (22-30); Estimated CRCL calculation 16 ml/min; Estimated Glomerular Filt Rate 29; Glucose 100 mg/dL (65-105); Phosphorus 3.5 mg/dL (2.5-4.5)
[2020-01-18] MEDS: SODIUM CHLORIDE 0.9% IV 1,000 ML 100 ML IV CONT ×2 (04:19→14:32)
[2020-01-18 04:32] LABS: Hematocrit 31.8 % (37.0-47.0); Hemoglobin 9.6 g/dL (12.0-15.0); Mean Corpuscular HGB Conc 30.2 g/dl (32-36); Mean Corpuscular Hemoglobin 25.7 pg (26-34); Mean Platelet Volume 8.2 fl (7.4-10.4); Platelet Count Result 413 k/mm3 (150-375); Red Blood Count 3.74 M/mm3 (4.2-5.4); Red Cell Distribution Width 15.3 % (11.5-14.5); White Blood Count 5.8 K/mm3 (4.5-10.0)
[2020-01-18 05:10] LABS: Chloride 107 mmol/L (98-107); Magnesium 1.7 mg/dL (1.6-2.3); Potassium 3.9 mmol/L (3.4-5.0); Sodium 138 mmol/L (137-145)
[2020-01-18] MEDS: MEMANTINE 5 MG TABLET PO ×2 (08:57→21:33)
[2020-01-18] MEDS: LOVASTATIN 20 MG TABLET PO (08:57)
[2020-01-18] MEDS: PANTOPRAZOLE SODIUM IV 40 MG VIAL IV PUSH ×2 (08:57→21:32)
[2020-01-18] MEDS: POLYSACCHARIDE IRON COMPLEX 150 MG CAPSULE PO ×2 (08:57→17:08)
[2020-01-18] MEDS: ESCITALOPRAM OXALATE 5 MG TABLET PO (08:57)
--- NOTE | 2020-01-18 10:23 | PCSTNOTE ---
Bedside Swallow Evaluation This pt was seen for a bedside swallow evaluation. She reports no difficulty swallowing and was on a regular diet with thin liquid at the time of the evaluation. She has some missing teeth. She was seated upright in bed and given trials of thin liquid via straw, pudding, puree, and soliid food. All trials were within normal limits. No clinical signs of aspiration were noted. It is recommended that the pt continue to receive an oral diet of regular (7) foods and thin (0) liquids. Position during intake should be upright. The pt should eat independently. No skilled ST is warranted at this time.
--- NOTE | 2020-01-18 11:00 | WPDANESPN ---
Anes - Prog Note Post-Op Date/Time: 01/18/20 11:00 Cardiovascular status: normal Respiratory status: normal Airway patency: baseline Mental status: baseline Post-Op hydration status: normal Vital Signs: Last Vital Signs Temp 36.4 C L 01/18/20 06:00 Pulse 75 01/18/20 08:00 Resp 20 01/18/20 06:00 BP 137/60 01/18/20 06:00 Pulse Ox 99 01/18/20 06:00 I/O: Intake & Output 01/17/20 01/18/20 01/18/20 23:59 07:59 15:59 Intake Total 661 1349 Output Total 900 Balance 661 449 Laboratory Tests 01/18/20 03:36 01/18/20 03:36 01/17/20 01/17/20 01/17/20 06:21 12:56 16:10 WBC RBC Hgb 6.8 L* 6.5 L* Hct 22.8 L 21.5 L MCV MCH MCHC RDW Plt Count MPV Sodium Potassium Chloride Carbon Dioxide BUN Creatinine Estim Creat Clear Calc Estimated GFR Glucose Lactic Acid Calcium Phosphorus Magnesium Iron TIBC % Saturation Ferritin Total Bilirubin AST ALT Alkaline Phosphatase Total Creatine Kinase Total Protein Albumin Vitamin B12 Folate Urine Color Urine Appearance Urine pH Ur Specific [place] Urine Protein Urine Glucose (UA) Urine Ketones Ur Blood (Man) Urine Nitrate Urine Bilirubin Urine Urobilinogen Leukocyte Esterase Rfl Urine RBC Urine WBC Urine Bacteria Urine Mucus Influenza Types A,B Ag Blood Type O Positive Antibody Screen Negative Crossmatch See Detail 01/17/20 01/17/20 01/17/20 16:10 16:10 16:10 WBC RBC Hgb Hct MCV MCH MCHC RDW Plt Count MPV Sodium 134 L Potassium 4.0 Chloride 104 Carbon Dioxide 23 BUN 36 H Creatinine 1.80 H Estim Creat Clear Calc 15 Estimated GFR 27 L Glucose 131 H Lactic Acid 1.2 Calcium 7.7 L Phosphorus 3.8 Magnesium 1.7 Iron TIBC % Saturation Ferritin Total Bilirubin AST ALT Alkaline Phosphatase Total Creatine Kinase 21 L Total Protein Albumin Vitamin B12 Folate Urine Color Urine Appearance Urine pH Ur Specific [place] Urine Protein Urine Glucose (UA) Urine Ketones Ur Blood (Man) Urine Nitrate Urine Bilirubin Urine Urobilinogen Leukocyte Esterase Rfl Urine RBC Urine WBC Urine Bacteria Urine Mucus Influenza Types A,B Ag Blood Type Antibody Screen Crossmatch 01/17/20 01/17/20 01/17/20 16:10 16:10 16:10 WBC RBC Hgb Hct MCV MCH MCHC RDW Plt Count MPV Sodium Potassium Chloride Carbon Dioxide BUN Creatinine Estim Creat Clear Calc Estimated GFR Glucose Lactic Acid Calcium Phosphorus Magnesium Iron 16 L TIBC 235 L % Saturation 7 L Ferritin 95.60 Total Bilirubin AST ALT Alkaline Phosphatase Total Creatine Kinase Total Protein Albumin Vitamin B12 278.0 Folate 16.7 Urine Color Urine Appearance Urine pH Ur Specific [place] Urine Protein Urine Glucose (UA) Urine Ketones Ur Blood (Man) Urine Nitrate Urine Bilirubin Urine Urobilinogen Leukocyte Esterase Rfl Urine RBC Urine WBC Urine Bacteria Urine Mucus Influenza Types A,B Ag Negative Blood Type Antibody Screen Crossmatch 01/17/20 01/17/20 01/18/20 18:22 22:02 03:36 WBC 5.8 RBC 3.74 L Hgb 7.4 L 9.6 L Hct 25.0 L 31.8 L MCV 85.0 MCH 25.7 L MCHC 30.2 L RDW 15.3 H Plt Count 413 H MPV 8.2 Sodium Potassium Chloride Carbon Dioxide BUN Creatinine Estim Creat Clear Calc Estimated GFR Glucose Lactic Acid Calcium Phosphorus Magnesium Iron TIBC % Saturation Ferritin Total Bilirubin AST ALT Alkaline Phosphatase Total Creatine
[2020-01-18] MEDS: LIDOCAINE 5% PATCH 1 PATCH TOPICAL ×2 (11:44→21:30)
[2020-01-18] MEDS: CYANOCOBALAMIN INJ 1,000 MCG/ML VIAL 1000 MCG IM (11:44)
--- NOTE | 2020-01-18 12:34 | P.PNIM_ITS ---
Progress Note: A&P Assessment and Plan (1) Sepsis: Code(s): A41.9 - Sepsis, unspecified organism Status: Acute Assessment and Plan: On arrival the patient was found to have a fever, tachycardia, increased respi ratory rate all in the setting of possible UTI and pneumonia. * Continue IV Levaquin pending urine culture results. * The patient is no longer febrile, tachycardic, with a normal respiratory rate not oxygenation. No leukocytosis noted. Continue monitoring patient's clinical status and vital signs. (2) Profound anemia: Code(s): D64.9 - Anemia, unspecified Status: Acute Assessment and Plan: * Initial reports of coffee-ground emesis, however EGD per Dr. Butts showed no source of bleeding. * By history and exam, hemoptysis and epistaxis seemed to be unlikely. * She is being transfused and her hemoglobin is stable at 9.6/and hematocrit at 31.8%. * Will recheck her H&H q.8 hr. Ordered stool occult which is pending. * Will monitor for any rectal bleeding, dark melenic stools or any other signs of bleeding. * The patient's vitamin B12 was low 278. I will give IM Cyanocobalamin 1000 mcg for 3 days then switch to PO 1000 mg. * The patient's iron panel shows it could be related to anemia of chronic disease. * Continue monitoring patient's symptoms and H&H. Transfuse as needed. (3) Acute kidney injury: Code(s): N17.9 - Acute kidney failure, unspecified Status: Acute Assessment and Plan: * She appears profoundly dehydrated on exam. * I suspect her renal function will improve with IV fluids. * Patient's renal function on arrival was 1.8. * Review of prior labs shows her creatinine is usually normal at 0.6 -0.8 with recent labs November 24, 2019. * Patient's creatinine this morning was 1.7. * Avoid nephrotoxic agents. Repeat renal function in a.m. (4) Urinary tract infection: Code(s): N39.0 - Urinary tract infection, site not specified Status: Acute Assessment and Plan: * She has been started on Levaquin, pending urine culture. * She notes an allergy to cefuroxime. (5) Abnormal chest x-ray: Code(s): R93.89 - Abnormal findings on diagnostic imaging of other specified body st ructures Status: Acute Assessment and Plan: * Chest x-ray shows mild focal patchy infiltrate in the right mid upper lung. * She has been started on Levaquin for UTI, which would cover possible pneumonia. * Influenza testing negative. * Bedside swallow was completed by speech therapy and reports the patient does not have any risk of aspiration. * Will treat for a community-acquired pneumonia with Levaquin. * Cornet was ordered. * She has normal vital signs, normal oxygenation, normal respiratory rate, no leukocytosis. (6) Dehydration: Code(s): E86.0 - Dehydration Status: Acute Assessment and Plan: * IV fluid rehydration as detailed above. Time Spent With Patient Time with patient: 25 - 35 minutes Subjective Date/time seen: 01/18/20 12:34 Interval history: Date of service 01/18/2020: Patient is resting comfortably in bed eating her breakfast. She is A&O x3, and is unsure why she is in the hospital. She otherwise looks and appears confused. She otherwise denies any current symptoms at this time. She reports not much pain to her back even with her recent spinal surgery October 2019. She denies any chest pain, shortness of breath, fever, chills, nausea, vomiting, abdominal pain, dark stools, blood in her stools, hemoptysis, cough, leg swe
--- NOTE | 2020-01-18 12:34 | PM.IMPN ---
Progress Note: A&P Assessment and Plan (1) Sepsis: Code(s): A41.9 - Sepsis, unspecified organism Status: Acute Assessment and Plan: On arrival the patient was found to have a fever, tachycardia, increased respiratory rate all in the setting of possible UTI and pneumonia. Continue IV Levaquin pending urine culture results. The patient is no longer febrile, tachycardic, with a normal respiratory rate not oxygenation. No leukocytosis noted. Continue monitoring patient's clinical status and vital signs. (2) Profound anemia: Code(s): D64.9 - Anemia, unspecified Status: Acute Assessment and Plan: Initial reports of coffee-ground emesis, however EGD per Dr. Butts showed no source of bleeding. By history and exam, hemoptysis and epistaxis seemed to be unlikely. She is being transfused and her hemoglobin is stable at 9.6/and hematocrit at 31.8%. Will recheck her H&H q.8 hr. Ordered stool occult which is pending. Will monitor for any rectal bleeding, dark melenic stools or any other signs of bleeding. The patient's vitamin B12 was low 278. I will give IM Cyanocobalamin 1000 mcg for 3 days then switch to PO 1000 mg. The patient's iron panel shows it could be related to anemia of chronic disease. Continue monitoring patient's symptoms and H&H. Transfuse as needed. (3) Acute kidney injury: Code(s): N17.9 - Acute kidney failure, unspecified Status: Acute Assessment and Plan: She appears profoundly dehydrated on exam. I suspect her renal function will improve with IV fluids. Patient's renal function on arrival was 1.8. Review of prior labs shows her creatinine is usually normal at 0.6 -0.8 with recent labs November 24, 2019. Patient's creatinine this morning was 1.7. Avoid nephrotoxic agents. Repeat renal function in a.m. (4) Urinary tract infection: Code(s): N39.0 - Urinary tract infection, site not specified Status: Acute Assessment and Plan: She has been started on Levaquin, pending urine culture. She notes an allergy to cefuroxime. (5) Abnormal chest x-ray: Code(s): R93.89 - Abnormal findings on diagnostic imaging of other specified body structures Status: Acute Assessment and Plan: Chest x-ray shows mild focal patchy infiltrate in the right mid upper lung. She has been started on Levaquin for UTI, which would cover possible pneumonia. Influenza testing negative. Bedside swallow was completed by speech therapy and reports the patient does not have any risk of aspiration. Will treat for a community-acquired pneumonia with Levaquin. Cornet was ordered. She has normal vital signs, normal oxygenation, normal respiratory rate, no leukocytosis. (6) Dehydration: Code(s): E86.0 - Dehydration Status: Acute Assessment and Plan: IV fluid rehydration as detailed above. Time Spent With Patient Time with patient: 25 - 35 minutes Subjective Date/time seen: 01/18/20 12:34 Interval history: Date of service 01/18/2020: Patient is resting comfortably in bed eating her breakfast. She is A&O x3, and is unsure why she is in the hospital. She otherwise looks and appears confused. She otherwise denies any current symptoms at this time. She reports not much pain to her back even with her recent spinal surgery October 2019. She denies any chest pain, shortness of breath, fever, chills, nausea, vomiting, abdominal pain, dark stools, blood in her stools, hemoptysis, cough, leg swelling, calf pain, or any other symptoms at this time. Review of Systems Review of Systems: All systems reviewed & are unremarkable except as noted in HPI and below Exam Narrative: Exam Narrative: General: 84-year-old woman sitting up in bed, eating her breakfast. Appears comfortable. In no acute distress. Skin: No jaundice or cyanosis. Good skin turgor. Neck: Full range of motion. Supple. Respiratory: Insp
[2020-01-18 13:53] LABS: Hematocrit 29.8 % (37.0-47.0)
[2020-01-18] MEDS: polyethylene glycoL 3350 17 GM POWD.PACK PO (14:33)
[2020-01-18] MEDS: MIRTAZAPINE 15 MG TABLET PO (21:31)
[2020-01-19] VITALS (9 sets, daily range): BP systolic 139–167; BP diastolic 60–72; PULSE 77–101; RESP 18–20; TEMP 36.5–36.9; O2SAT 94–97; BMI 10.0
[2020-01-19] MEDS: SODIUM CHLORIDE 0.9% IV 1,000 ML 100 ML IV CONT (00:38)
[2020-01-19 06:34] LABS: Hematocrit 30.1 % (37.0-47.0); Hemoglobin 9.2 g/dL (12.0-15.0); Mean Corpuscular HGB Conc 30.6 g/dl (32-36); Mean Corpuscular Hemoglobin 25.7 pg (26-34); Mean Corpuscular Volume 84.1 fl (80-100); Mean Platelet Volume 8.6 fl (7.4-10.4); Platelet Count Result 417 k/mm3 (150-375); Red Blood Count 3.58 M/mm3 (4.2-5.4); Red Cell Distribution Width 15.4 % (11.5-14.5); White Blood Count 5.6 K/mm3 (4.5-10.0)
[2020-01-19 06:50] LABS: Blood Urea Nitrogen 24 mg/dL (7-17); Calcium 7.5 mg/dL (8.4-10.2); Carbon Dioxide 23 mmol/L (22-30); Chloride 112 mmol/L (98-107); Estimated CRCL calculation 16 ml/min; Estimated Glomerular Filt Rate 29; Glucose 92 mg/dL (65-105); Magnesium 1.7 mg/dL (1.6-2.3); Potassium 3.9 mmol/L (3.4-5.0); Sodium 138 mmol/L (137-145)
[2020-01-19] MEDS: TRAMADOL HCL 50 MG TABLET PO (08:36)
[2020-01-19] MEDS: CYANOCOBALAMIN INJ 1,000 MCG/ML VIAL 1000 MCG IM (08:36)
[2020-01-19] MEDS: LOVASTATIN 20 MG TABLET PO (08:37)
[2020-01-19] MEDS: polyethylene glycoL 3350 17 GM POWD.PACK PO (08:37)
[2020-01-19] MEDS: PANTOPRAZOLE SODIUM IV 40 MG VIAL IV PUSH ×2 (08:37→21:12)
[2020-01-19] MEDS: MEMANTINE 5 MG TABLET PO ×2 (08:37→21:05)
[2020-01-19] MEDS: ESCITALOPRAM OXALATE 5 MG TABLET PO (08:37)
[2020-01-19] MEDS: POLYSACCHARIDE IRON COMPLEX 150 MG CAPSULE PO ×2 (08:37→17:07)
[2020-01-19] MEDS: LIDOCAINE 5% PATCH 1 PATCH TOPICAL ×2 (08:37→21:02)
--- NOTE | 2020-01-19 08:47 | WPDGIPROGNO ---
Progress Note: A&P Additional Plan Patient reports being more comfortable this morning. Reports no further bleeding. At admission complained of coffee-ground color to sputum production. She had coffee-grounds at her lips prompting her referral to the hospital. EGD was normal. Physical exam reveals her to be alert. Comfortable at rest. Lungs are clear. Heart without murmur. Abdominal is soft nontender with no hepatosplenomegaly. Labs reveal low iron low TIBC elevated ferritin consistent with anemia of chronic disease. Chest x-ray reveals a right-sided lung infiltrate. EGD was unremarkable. Impression. 1. anemia of chronic disease. Etiology unclear. 2. Resolved hemoptysis. 3. Right lung infiltrate. Could have been source of hemoptysis. Plan. At the present time no additional GI workup planned. Stool Hemoccult may be of some benefit. Outpatient follow-up can be accomplished if necessary. Workup for pulmonary infiltrate will be deferred to primary care service. Subjective Date/time seen: 01/19/20 08:47 Objective Data Vital Signs Vital Signs: Vital Signs - 24 hr 01/18/20 12:00 01/18/20 14:00 01/18/20 16:00 Temperature 36.5 C Pulse Rate 79 89 83 Respiratory Rate 18 Blood Pressure 144/68 H Pulse Oximetry 98 01/18/20 20:00 01/18/20 22:00 01/19/20 00:00 Temperature 36.9 C Pulse Rate 85 56 L 80 Respiratory Rate 20 Blood Pressure 148/56 H Pulse Oximetry 96 01/19/20 04:00 01/19/20 05:55 Temperature 36.5 C Pulse Rate 77 88 Respiratory Rate 18 Blood Pressure 139/60 Pulse Oximetry 97 Intake/Output Intake/Output: Intake & Output 01/16/20 01/17/20 01/18/20 01/19/20 23:59 23:59 23:59 23:59 Intake Total 2000 0063 1820 Output Total 0754 650 Balance 2000 3451 670 Meds/Results Medications: Active Medications Generic Name Dose Route Start Last Admin Trade Name Freq PRN Reason Stop Dose Admin Acetaminophen 650 mg 01/17/20 15:38 01/17/20 18:31 Tylenol Tablet PO 650 mg Q6H PRN Administration Mild Pain (1-3) or Fever Cyanocobalamin 1,000 mcg 01/18/20 09:00 01/19/20 08:36 Vitamin B-12 Inj IM 01/20/20 09:01 1,000 mcg DAILY RYAN Administration Cyanocobalamin 1,000 mcg 01/21/20 09:00 Vitamin B-12 Tab PO QAM RYAN Escitalopram Oxalate 5 mg 01/18/20 09:00 01/19/20 08:37 Lexapro PO 5 mg QAM RYAN Administration Sodium Chloride 1,000 mls @ 50 mls/hr 01/17/20 15:40 01/19/20 08:35 Normal Saline Iv IV CONT 50 mls/hr .Q20H RYAN Infusion Levofloxacin/Dextrose 500 mg in 100 mls @ 66.667 mls/hr 01/19/20 16:00 Levaquin 500 Mg/D5w 100 Ml IVPB Q48H RYAN Lidocaine 1 patch 01/18/20 09:00 01/19/20 08:37 Lidoderm TOPICAL 1 patch Q12HR RYAN Administration Lidocaine HCl 0.3 ml 01/17/20 10:13 Xylocaine 2% Local Inj INTRADERM ONCE PRN to numb area Lovastatin 20 mg 01/18/20 09:00 01/19/20 08:37 Lovastatin PO 20 mg DAILY RYAN Administration Memantine 5 mg 01/17/20 21:00 01/19/20 08:37 Namenda PO 5 mg Q12HR [facility] Administration Mirtazapine 15 mg 01/17/20 21:00 01/18/20 21:31 Remeron PO 15 mg HS RYAN Administration Pantoprazole Sodium 40 mg 01/17/20 21:00 01/19/20 08:37 Protonix Iv IV PUSH 40 mg Q12HR RYAN Administration Polyethylene Glycol 17 gm 01/17/20 20:17 Miralax PO QAM PRN Constipation Polyethylene Glycol 17 gm 01/18/20 12:40 01/19/20 08:37 Miralax PO 17 gm QAM RYAN Administration Polysaccharide Iron Complex 150 mg 01/17/20 20:25 01/19/20 08:37 Niferex-150 PO 02/17/20 20:26 150 mg BID RYAN Administration Tizanidine HCl 4 mg 01/17/20 20:17 Zanaflex PO Q6H PRN Muscle Spasm Tramadol HCl 50 mg 01/17/20 20:17 01/19/20 08:36 Ultram PO 50 mg Q8H PRN Administration pain RATED 4-6 Radiology Results: ITS Impressions Abdomen X-Ray 01/17/20 08:20 IMPRESSION: Mod
--- NOTE | 2020-01-19 10:55 | P.PNIM_ITS ---
Progress Note: A&P Assessment and Plan (1) Sepsis: Code(s): A41.9 - Sepsis, unspecified organism Status: Acute Assessment and Plan: On arrival the patient was found to have a fever, tachycardia, increased respi ratory rate all in the setting of possible UTI and pneumonia. * Continue IV Levaquin which is susceptable to her UTI and normally treats pneumonia well. * The patient is no longer febrile, tachycardic, with a normal respiratory rate not oxygenation. No leukocytosis noted. Continue monitoring patient's clinical status and vital signs. (2) Profound anemia: Code(s): D64.9 - Anemia, unspecified Status: Acute Assessment and Plan: * Initial reports of coffee-ground emesis, however EGD per Dr. Butts showed no source of bleeding. * By history and exam, hemoptysis and epistaxis seemed to be unlikely. * She was transfused 2 Units * Today hemoglobin is stable at 9.2/and hematocrit at 30.1%. * Will recheck her H&H q.8 hr. Ordered stool occult which is pending. * Will monitor for any rectal bleeding, dark melenic stools or any other signs of bleeding. * The patient's vitamin B12 was low 278. I will give IM Cyanocobalamin 1000 mcg for 3 days then switch to PO 1000 mg. * The patient's iron panel shows it could be related to anemia of chronic disease. * Continue monitoring patient's symptoms and H&H. Transfuse as needed. (3) Acute kidney injury: Code(s): N17.9 - Acute kidney failure, unspecified Status: Acute Assessment and Plan: Review of prior labs shows her creatinine is usually normal at 0.6 -0.8 with recent labs November 24, 2019. * She appears profoundly dehydrated on exam, versus from severe anemia. * Patient's renal function on arrival was 1.8. * Patient's creatinine this morning was 1.7. No improvement with IV fluid hydration. * I ordered a renal ultrasound which showed 2.8 cm right renal cyst, in Dr. Alaniz reported a mildly small right kidney. * I consulted Nephrology, Dr. Alaniz evaluated the patient and believes it could be related to her acute anemia, dehydration, and ordered some initial lab testing to be drawn. * Avoid nephrotoxic agents. Repeat renal function in a.m. (4) Urinary tract infection: Code(s): N39.0 - Urinary tract infection, site not specified Status: Acute Assessment and Plan: * She has been started on IV Levaquin, which is sensitive to the E coli and Streptococcus viridans infection she has. * Continue monitoring symptoms and IV antibiotics. (5) Abnormal chest x-ray: Code(s): R93.89 - Abnormal findings on diagnostic imaging of other specified body str uctures Status: Acute Assessment and Plan: * Chest x-ray shows mild focal patchy infiltrate in the right mid upper lung. * She has been started on Levaquin for UTI, which would cover possible pneumonia. * Influenza testing negative. * Bedside swallow was completed by speech therapy and reports the patient does not have any risk of aspiration. * Will treat for a community-acquired pneumonia with Levaquin. * Cornet was ordered. * She has normal vital signs, normal oxygenation, normal respiratory rate, no l eukocytosis. (6) Dehydration: Code(s): E86.0 - Dehydration Status: Acute Assessment and Plan: * IV fluid rehydration as detailed abov
--- NOTE | 2020-01-19 10:55 | PM.IMPN ---
Progress Note: A&P Assessment and Plan (1) Sepsis: Code(s): A41.9 - Sepsis, unspecified organism Status: Acute Assessment and Plan: On arrival the patient was found to have a fever, tachycardia, increased respiratory rate all in the setting of possible UTI and pneumonia. Continue IV Levaquin which is susceptable to her UTI and normally treats pneumonia well. The patient is no longer febrile, tachycardic, with a normal respiratory rate not oxygenation. No leukocytosis noted. Continue monitoring patient's clinical status and vital signs. (2) Profound anemia: Code(s): D64.9 - Anemia, unspecified Status: Acute Assessment and Plan: Initial reports of coffee-ground emesis, however EGD per Dr. Butts showed no source of bleeding. By history and exam, hemoptysis and epistaxis seemed to be unlikely. She was transfused 2 Units Today hemoglobin is stable at 9.2/and hematocrit at 30.1%. Will recheck her H&H q.8 hr. Ordered stool occult which is pending. Will monitor for any rectal bleeding, dark melenic stools or any other signs of bleeding. The patient's vitamin B12 was low 278. I will give IM Cyanocobalamin 1000 mcg for 3 days then switch to PO 1000 mg. The patient's iron panel shows it could be related to anemia of chronic disease. Continue monitoring patient's symptoms and H&H. Transfuse as needed. (3) Acute kidney injury: Code(s): N17.9 - Acute kidney failure, unspecified Status: Acute Assessment and Plan: Review of prior labs shows her creatinine is usually normal at 0.6 -0.8 with recent labs November 24, 2019. She appears profoundly dehydrated on exam, versus from severe anemia. Patient's renal function on arrival was 1.8. Patient's creatinine this morning was 1.7. No improvement with IV fluid hydration. I ordered a renal ultrasound which showed 2.8 cm right renal cyst, in Dr. Alaniz reported a mildly small right kidney. I consulted Nephrology, Dr. Alaniz evaluated the patient and believes it could be related to her acute anemia, dehydration, and ordered some initial lab testing to be drawn. Avoid nephrotoxic agents. Repeat renal function in a.m. (4) Urinary tract infection: Code(s): N39.0 - Urinary tract infection, site not specified Status: Acute Assessment and Plan: She has been started on IV Levaquin, which is sensitive to the E coli and Streptococcus viridans infection she has. Continue monitoring symptoms and IV antibiotics. (5) Abnormal chest x-ray: Code(s): R93.89 - Abnormal findings on diagnostic imaging of other specified body structures Status: Acute Assessment and Plan: Chest x-ray shows mild focal patchy infiltrate in the right mid upper lung. She has been started on Levaquin for UTI, which would cover possible pneumonia. Influenza testing negative. Bedside swallow was completed by speech therapy and reports the patient does not have any risk of aspiration. Will treat for a community-acquired pneumonia with Levaquin. Cornet was ordered. She has normal vital signs, normal oxygenation, normal respiratory rate, no leukocytosis. (6) Dehydration: Code(s): E86.0 - Dehydration Status: Acute Assessment and Plan: IV fluid rehydration as detailed above. 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 She was started on bacitracin 2% will be applied q.12 hours for 5 days. Time Spent With Pa
--- NOTE | 2020-01-19 11:25 | PM.CNNEP ---
Assessment and Plan Assessment and plan (1) Acute kidney injury: Code(s): N17.9 - Acute kidney failure, unspecified Status: Acute Assessment and Plan: The patient has acute kidney injury. Her baseline creatinine is 0.7 from October. On admission it was 1.8 and has been stable since then. The patient was probably dehydrated when she came in having had emesis. She has received IV fluids but the creatinine has not improved. Renal ultrasound was done which rules out obstruction. However it does show a mildly small left kidney. The patient does have septic syndrome. Blood cultures are negative. Urine culture showed E coli. She is on Levaquin for this. Results of the culture showed that the organism is sensitive to this. Other causes kidney disease include allergic interstitial nephritis, glomerulonephritis, and vascular causes but she does not have any signs or symptoms that would suggest any of these. I suspect that the main causes include infection, and dehydration. This slow recovery is probably related to the former issue. At this point will get urine electrolytes and eosinophils. We will continue IV fluids. Will continue IV antibiotics. Check a renal panel in the morning. (2) Sepsis: Code(s): A41.9 - Sepsis, unspecified organism Status: Acute Assessment and Plan: On Levaquin (3) Upper gastrointestinal bleeding: Code(s): K92.2 - Gastrointestinal hemorrhage, unspecified Status: Acute Assessment and Plan: She has received blood transfusions. (4) Dementia: Code(s): F03.90 - Unspecified dementia without behavioral disturbance Status: Acute Assessment and Plan: She is on meds for this (5) Hypertension: Code(s): I10 - Essential (primary) hypertension Status: Acute Assessment and Plan: Her blood pressure is under good control. History of Present Illness Reason for Consult Consult date: 01/19/20 Chief Complaint Chief complaint: ?Coffee-ground emesis.? History of Present Illness Narrative: Lora is a very pleasant 84-year-old lady who has multiple medical problems including depression, senile dementia, anemia, hyperlipidemia, arthritis, recent lumbar fusion, anxiety, urinary incontinence, osteoporosis, and hypertension. The patient came into the hospital because of coffee-ground emesis. The patient is not a good historian because of her disorder of recent memory. The patient does not have a past history of kidney disease. She has not had any bloody foamy cloudy or smelly urine. No painful urination. The patient has hypertension. This has been pretty well controlled. It is in a good range today. The patient has anemia. She is on iron for this. She has hyperlipidemia and is on lovastatin for this. Review of Systems Constitutional: Constitutional: Reports no additional constitutional complaints Eyes: Eyes: Reports no additional eye complaints ENT: Reports system reviewed and no additional complaints, except as documented Cardiovascular: Cardiovascular: Reports no additional cardiovascular complaints Respiratory: Respiratory: Reports no additional respiratory complaints Gastrointestinal: Gastrointestinal: Reports no additional gastrointestinal complaints Genitourinary: Genitourinary: Reports no additional female genitourinary complaints Musculoskeletal: Musculoskeletal: Reports no additional musculoskeletal complaints Integumentary/Breasts: Skin/Breast: Reports system reviewed and no additional complaints, except as docu Neurologic: Reports system reviewed and no additional complaints, except as documented Psychiatric: Psychiatric: Reports no additional psychiatric complaints [facility] Past Medical History Medical History Anxiety Chronic anemia Dementia GERD (gastroesophageal reflux disease) Hyperlipidemia Hypertension Osteoarthritis Ost
[2020-01-19] MEDS: MUPIROCIN 2% OINT 22 GM TUBE 1 APPLIC EACH NARE ×2 (13:15→21:05)
[2020-01-19] MEDS: SODIUM CHLORIDE 0.9% IV 1,000 ML 50 ML IV CONT (14:00)
[2020-01-19 15:34] LABS: Creatinine Urine 25.8 mg/dL; Total Protein Urine Random 36 mg/dL
[2020-01-19 15:39] LABS: Sodium Urine Random 144 meq/L
[2020-01-19] MEDS: levoFLOXacin 500 MG/D5W 100 ML 500 MG/100 ML BAG 66.7 MG IVPB (17:08)
[2020-01-19] MEDS: MIRTAZAPINE 15 MG TABLET PO (21:04)
[2020-01-20] VITALS: PULSE 83
[2020-01-20] MEDS: TRAMADOL HCL 50 MG TABLET PO (00:21)
[2020-01-20 04:00] VITALS: PULSE 73
[2020-01-20 06:00] VITALS: BP 159/81; PULSE 82; RESP 16; TEMP 36.7; O2SAT 97
[2020-01-20 06:18] LABS: Hematocrit 31.2 % (37.0-47.0); Hemoglobin 9.4 g/dL (12.0-15.0); Mean Corpuscular HGB Conc 30.1 g/dl (32-36); Mean Corpuscular Hemoglobin 25.5 pg (26-34); Mean Corpuscular Volume 84.8 fl (80-100); Mean Platelet Volume 8.2 fl (7.4-10.4); Platelet Count Result 356 k/mm3 (150-375); Red Blood Count 3.68 M/mm3 (4.2-5.4); Red Cell Distribution Width 15.3 % (11.5-14.5); White Blood Count 5.4 K/mm3 (4.5-10.0)
[2020-01-20 06:33] LABS: Potassium 3.9 mmol/L (3.4-5.0)
[2020-01-20 06:36] LABS: Albumin Level 2.5 g/dL (3.5-5.1); Blood Urea Nitrogen 21 mg/dL (7-17); Calcium 7.3 mg/dL (8.4-10.2); Carbon Dioxide 23 mmol/L (22-30); Chloride 111 mmol/L (98-107); Estimated CRCL calculation 15 ml/min; Estimated Glomerular Filt Rate 27; Glucose 97 mg/dL (65-105); Phosphorus 3.6 mg/dL (2.5-4.5); Sodium 137 mmol/L (137-145)
[2020-01-20 08:00] VITALS: PULSE 75
[2020-01-20] MEDS: MUPIROCIN 2% OINT 22 GM TUBE 1 APPLIC EACH NARE (09:12)
[2020-01-20] MEDS: SODIUM CHLORIDE 0.9% IV 1,000 ML 50 ML IV CONT (09:12)
[2020-01-20] MEDS: PANTOPRAZOLE SODIUM IV 40 MG VIAL IV PUSH (09:12)
[2020-01-20] MEDS: polyethylene glycoL 3350 17 GM POWD.PACK PO (09:13)
[2020-01-20] MEDS: POLYSACCHARIDE IRON COMPLEX 150 MG CAPSULE PO ×2 (09:14→16:56)
[2020-01-20] MEDS: MEMANTINE 5 MG TABLET PO (09:14)
[2020-01-20] MEDS: ESCITALOPRAM OXALATE 5 MG TABLET PO (09:14)
[2020-01-20] MEDS: LOVASTATIN 20 MG TABLET PO (09:25)
[2020-01-20] MEDS: CYANOCOBALAMIN INJ 1,000 MCG/ML VIAL 1000 MCG IM (11:01)
[2020-01-20 12:00] VITALS: PULSE 99
[2020-01-20 14:00] VITALS: BP 153/71; PULSE 101; RESP 20; TEMP 37.1; O2SAT 97
--- NOTE | 2020-01-20 15:24 | P.DS_ITS ---
DS: Diagnosis Admitting Diagnosis Admitting Diagnosis: Anemia, unspecified Discharge Diagnosis (1) Sepsis: Code(s): A41.9 - Sepsis, unspecified organism Status: Acute Assessment and Plan: On arrival the patient was found to have a fever, tachycardia, increased respiratory rate all in the setting of possible UTI and pneumonia. * Continue IV Levaquin which is susceptable to her UTI and normally treats pneumonia well. * The patient is no longer febrile, tachycardic, with a normal respiratory rate not oxygenation. No leukocytosis noted. * Stable for discharge at this time back to [facility]. (2) Profound anemia: Code(s): D64.9 - Anemia, unspecified Status: Acute Assessment and Plan: * Initial reports of coffee-ground emesis, however EGD per Dr. Butts showed no source of bleeding. * By history and exam, hemoptysis and epistaxis seemed to be unlikely. * She was transfused 2 Units * Today, hemoglobin is stable at 9.4/and hematocrit at 31.2% * The patient's vitamin B12 was low 278. I will give IM Cyanocobalamin 1000 mcg for 3 days then switch to PO 1000 mg. * The patient's iron panel shows it could be related to anemia of chronic disea se. * Will discontinue Xarelto at this time and switch to Lovenox SQ daily for DVT prevention and see what the patients primary care provider would like to continue with. * Will recheck her CBC in 1 week. (3) Acute kidney injury: Code(s): N17.9 - Acute kidney failure, unspecified Status: Acute Assessment and Plan: Review of prior labs shows her creatinine is usually normal at 0.6 -0.8 with recent labs November 24, 2019. * She appears profoundly dehydrated on exam, versus from severe anemia. * Patient's renal function on arrival was 1.8. * Patient's creatinine this morning was 1.8. No improvement with IV fluid hydration. * I ordered a renal ultrasound which showed 2.8 cm right renal cyst, in Dr. Alaniz reported a mildly small right kidney. * I consulted Nephrology and called Dr. Ferguson about the patient this morning who states it could be related to her acute anemia, dehydration and sometimes the patients creatinine can take 1-2 weeks before normalizing. He recommends discharging her since creatinine is stable and rechecking BMP in 1 week. evaluated the patient and believes it could be and ordered some initial lab testing to be drawn. (4) Urinary tract infection: Code(s): N39.0 - Urinary tract infection, site not specified Status: Acute Assessment and Plan: * She has been started on IV Levaquin, which is sensitive to the E coli and Streptococcus viridans infection she has. * Will discharge her home on oral Levaquin and probiotics. (5) Abnormal chest x-ray: Code(s): R93.89 - Abnormal findings on diagnostic imaging of other specified body structures Status: Acute Assessment and Plan: * Chest x-ray shows mild focal patchy infiltrate in the right mid upper lung. * She has been started on Levaquin for UTI, which would cover possible pneumonia. * Influenza testing negative. * Bedside swallow was completed by speech therapy and reports the patient does not have any risk of aspiration. * Will treat for a community-acquired pneumonia with Levaquin. * Cornet was ordered. * She has normal vital signs, normal oxygenation, normal respiratory rate, no leukocytosis. * Will di
--- NOTE | 2020-01-20 15:24 | PM.DS ---
DS: Diagnosis Admitting Diagnosis Admitting Diagnosis: Anemia, unspecified Discharge Diagnosis (1) Sepsis: Code(s): A41.9 - Sepsis, unspecified organism Status: Acute Assessment and Plan: On arrival the patient was found to have a fever, tachycardia, increased respiratory rate all in the setting of possible UTI and pneumonia. Continue IV Levaquin which is susceptable to her UTI and normally treats pneumonia well. The patient is no longer febrile, tachycardic, with a normal respiratory rate not oxygenation. No leukocytosis noted. Stable for discharge at this time back to [facility]. (2) Profound anemia: Code(s): D64.9 - Anemia, unspecified Status: Acute Assessment and Plan: Initial reports of coffee-ground emesis, however EGD per Dr. Butts showed no source of bleeding. By history and exam, hemoptysis and epistaxis seemed to be unlikely. She was transfused 2 Units Today, hemoglobin is stable at 9.4/and hematocrit at 31.2% The patient's vitamin B12 was low 278. I will give IM Cyanocobalamin 1000 mcg for 3 days then switch to PO 1000 mg. The patient's iron panel shows it could be related to anemia of chronic disease. Will discontinue Xarelto at this time and switch to Lovenox SQ daily for DVT prevention and see what the patients primary care provider would like to continue with. Will recheck her CBC in 1 week. (3) Acute kidney injury: Code(s): N17.9 - Acute kidney failure, unspecified Status: Acute Assessment and Plan: Review of prior labs shows her creatinine is usually normal at 0.6 -0.8 with recent labs November 24, 2019. She appears profoundly dehydrated on exam, versus from severe anemia. Patient's renal function on arrival was 1.8. Patient's creatinine this morning was 1.8. No improvement with IV fluid hydration. I ordered a renal ultrasound which showed 2.8 cm right renal cyst, in Dr. Alaniz reported a mildly small right kidney. I consulted Nephrology and called Dr. Ferguson about the patient this morning who states it could be related to her acute anemia, dehydration and sometimes the patients creatinine can take 1-2 weeks before normalizing. He recommends discharging her since creatinine is stable and rechecking BMP in 1 week. evaluated the patient and believes it could be and ordered some initial lab testing to be drawn. (4) Urinary tract infection: Code(s): N39.0 - Urinary tract infection, site not specified Status: Acute Assessment and Plan: She has been started on IV Levaquin, which is sensitive to the E coli and Streptococcus viridans infection she has. Will discharge her home on oral Levaquin and probiotics. (5) Abnormal chest x-ray: Code(s): R93.89 - Abnormal findings on diagnostic imaging of other specified body structures Status: Acute Assessment and Plan: Chest x-ray shows mild focal patchy infiltrate in the right mid upper lung. She has been started on Levaquin for UTI, which would cover possible pneumonia. Influenza testing negative. Bedside swallow was completed by speech therapy and reports the patient does not have any risk of aspiration. Will treat for a community-acquired pneumonia with Levaquin. Cornet was ordered. She has normal vital signs, normal oxygenation, normal respiratory rate, no leukocytosis. Will discharge her back to [facility] to continue oral levaquin. (6) Dehydration: Code(s): E86.0 - Dehydration Status: Acute Assessment and Plan: IV fluid rehydration as detailed above. 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
== END 2020-01-20 17:00 | DRG 871 ==
LOC: ANHED 09:20 → ANH3MEDSUR 09:44
PROVIDERS: Internal Medicine Gastroenterology; Internal Medicine Nephrology; Physician Assistant; Admitting Provider Hospitalist; Emergency Provider Emergency Medicine; PCP Internal Medicine; Visit Provider Internal Medicine
PROC: 0DJ08ZZ Inspection of Upper Intestinal Tract, Via Natural or Artificial Opening Endoscopic (ICD-10-PCS; CPT 43235; principal; 2020-01-17 10:30)
DX: A41.9 Sepsis, unspecified organism (principal); J18.9 Pneumonia, unspecified organism; N17.9 Acute kidney failure, unspecified; N39.0 Urinary tract infection, site not specified; R04.2 Hemoptysis; E86.0 Dehydration; K21.9 Gastro-esophageal reflux disease without esophagitis; I10 Essential (primary) hypertension; Z87.891 Personal history of nicotine dependence; M43.16 Spondylolisthesis, lumbar region; K44.9 Diaphragmatic hernia without obstruction or gangrene; D63.8 Anemia in other chronic diseases classified elsewhere; Z22.322 Carrier or suspected carrier of Methicillin resistant Staphylococcus aureus; B96.20 Unspecified Escherichia coli [E. coli] as the cause of diseases classified elsewhere; B95.4 Other streptococcus as the cause of diseases classified elsewhere; E78.5 Hyperlipidemia, unspecified; F03.90 Unspecified dementia, unspecified severity, without behavioral disturbance, psychotic disturbance, mood disturbance, and anxiety; F41.8 Other specified anxiety disorders; Z90.710 Acquired absence of both cervix and uterus; M19.90 Unspecified osteoarthritis, unspecified site; M81.0 Age-related osteoporosis without current pathological fracture; M48.00 Spinal stenosis, site unspecified; G89.29 Other chronic pain; R32 Unspecified urinary incontinence; Z66 Do not resuscitate; N28.1 Cyst of kidney, acquired; Z98.1 Arthrodesis status
CPT/HCPCS: 36415; 36430; 71045; 76775; 80048; 80053; 80069; 81001; 82550; 82570; 82607; 82728; 82746; 83540; 83550; 83605; 83735; 84100; 84156; 84300; 85014; 85018; 85025; 85027; 85610; 85730; 86850; 86900; 86901; 86923; 87040; 87077; 87081; 87086; 87088; 87186; 87804; 92610; 94668; 96361; 96374; 96375; 97161; 97165; 99285; A9270; C9113; J1956; J2704; J3370; J3420; J7030; J7120; P9016